=== PATIENT | female | born 1980 | race Caucasian/White ===

== ENCOUNTER 2019-06-20 16:05 | Emergency (ER) | payer OTHER, SELFPAY ==
[2019-06-20 16:18] VITALS: BP 131/73; PULSE 92; RESP 16; TEMP 37.3; O2SAT 100
--- NOTE | 2019-06-20 16:26 | ED.URI ---
HPI - URI/Sore Throat General Chief Complaint: Upper Respiratory Infection Stated Complaint: sore throat History of Present Illness HPI Narrative: This is a 39-year-old female comes in complaining of having a sore throat since yesterday patient states that she gets strep very easily states that it started yesterday. Patient states that her ears bilaterally have started to hurt and she does not feel dizzy but they are causing severe pain. Related Data Home Medications Medication Instructions Recorded Confirmed bimatoprost 1 drp QPM 06/20/19 06/20/19 Allergies Allergy/AdvReac Type Severity Reaction Status Date / Time Sulfa (Sulfonamide Allergy Unknown Urticaria Verified 06/20/19 16:10 Antibiotics) Review of Systems Review of Systems: Narrative: CONSTITUTIONAL: Denies fever, chills, or sweats. EYES: Denies visual changes, redness, or discharge. ENT: Reports rhinorrhea, congestion, sore throat, or otalgia. CARDIOVASCULAR:Denies chest pain, palpitations, or edema. RESPIRATORY: Denies cough or dyspnea. GASTROINTESTINAL: Denies abdominal pain, nausea, vomiting, or diarrhea. GENITOURINARY: Denies dysuria or hematuria. SKIN:[Denies rash or itching. MUSCULOSKELETAL:Denies back pain, joint pain, or myalgia. NEUROLOGIC: Denies headache, numbness, or weakness. PSYCHIATRIC:Denies anxiety or depression PMFSH Past Medical History Medical History (Updated 06/21/19 @ 00:00 by Judie Flores) ADHD Social History Social History (Updated 01/30/19 @ 14:17 by French Weeks APN) Smoking packs per day: 0.5 Smoking cigarettes per day: 10.0 Smoking status: Current every day smoker Alcohol intake: current Gender identity (if verbalized by the patient): Female Comments At time as signature, I have reviewed and agree with nursing past medical, social, surgical and family history. Please see nursing chart for further information. There is no relevant family history pertinent to the presenting complaint. Exam Narrative: Exam Narrative: GENERAL:Well-appearing, well-nourished, and in no acute distress. HEAD:Normocephalic, atraumatic. EYES: PERRLA and EOMI. ENT: Nares clear, no rhinorrhea or epistaxis. Mucous membranes moist. Pharyngeal erythema TM right bulging with erythema left TM with slight erythema NECK: Supple. CHEST: Clear to auscultation. No respiratory distress. HEART: Regular rate and rhythm. No murmur heard. Normal peripheral pulses. ABDOMEN: Soft, nontender, nondistended, normal active bowel sounds. EXTREMITIES: Normal range of motion. No edema. SKIN: Warm, dry, no rash. NEURO: No focal deficits. Alert and oriented x3. Course Vital Signs Vital signs: Vital Signs Temperature 99.2 F 06/20/19 16:18 Pulse Rate 92 06/20/19 16:18 Respiratory Rate 16 06/20/19 16:18 Blood Pressure 131/73 06/20/19 16:18 Pulse Oximetry 100 06/20/19 16:18 Temperature 99.2 F 06/20/19 16:18 Pulse Rate 92 06/20/19 16:18 Respiratory Rate 16 06/20/19 16:18 Blood Pressure 131/73 06/20/19 16:18 Pulse Oximetry 100 06/20/19 16:18 MDM - URI/Sore Throat Differential Diagnosis Differential diagnosis: Likely upper respiratory infection, croup, otitis media, sinusitis and pharyngitis Lab Data Labs: Strep Screen Presumptive Negative *(Reference Range: Negative)* Discharge Plan Discharge Clinical Impression: Pharyngitis, Otitis media Patient Disposition: Home, Self-Care Condition: Stable Instructions: Antibiotic Form, Pharyngitis (ED) Additional Instructions: Your strep test today was negative. A throat culture will be sent to the laboratory for further testing. IF the test is positive, you will receive a phone call within 48 hours and an appropriate antibiotic will be initiated at that time. You will not receive a phone call if the test is negative. Until the throat culture proves otherwise, you should proceed with treating this is as a vi
== END 2019-06-20 16:38 | disposition home or self-care (01) ==
PROVIDERS: Emergency Provider Nurse Practitioner Family; PCP Internal Medicine
DX: J02.9 Acute pharyngitis, unspecified (principal); H66.91 Otitis media, unspecified, right ear; F17.210 Nicotine dependence, cigarettes, uncomplicated; F90.9 Attention-deficit hyperactivity disorder, unspecified type
CPT/HCPCS: 87081; 87880; 99213; G0463

== ENCOUNTER 2019-10-15 16:44 | Emergency (ER) | payer OTHER, SELFPAY | END 2019-10-15 16:46 | disposition left against medical advice (07) | PROVIDERS: Emergency Provider Nurse Practitioner; PCP Internal Medicine | DX: Z53.21 Procedure and treatment not carried out due to patient leaving prior to being seen by health care provider (principal) | CPT/HCPCS: 99199 ==

== ENCOUNTER 2020-11-16 04:41 | Day surgery (SDC) | payer OTHER, SELFPAY ==
[2020-11-16] VITALS (13 sets, daily range): BP systolic 91–136; BP diastolic 48–93; PULSE 60–87; RESP 12–20; TEMP 36.2–37.5; O2SAT 95–100
--- NOTE | ~2020-11-16 | US_ITS ---
US abdomen limited INDICATION: Epigastric pain PROCEDURE: Realtime right upper abdominal ultrasound. COMPARISON: No prior studies for comparison. FINDINGS: The pancreas is normal without focal mass or pancreatic ductal dilation. Liver echotexture is normal without focal mass or intrahepatic biliary dilatation. There is normal directional flow i n the portal vein. The gallbladder is normal without stones, gallbladder wall thickening or pericholecystic fluid. Comm on bile duct measures 7 mm. No sonographic El's sign. IMPRESSION: 1: Borderline size common bile duct measuring 7 mm. Otherwise, unremarkable limited abdominal ultraso und. Reviewed, dictated and finalized at location A. IMPRESSION: 1: Borderline size common bile duct measuring 7 mm. Otherwise, unremarkable salazar ited abdominal ultrasound.
--- NOTE | ~2020-11-16 | CT_ITS ---
EXAMINATION: CT abdomen pelvis w con DATE: 11/16/2020 09:44 INDICATION: Epigastric abdominal pain. TECHNIQUE: Computed tomography (CT) of the abdomen and pelvis was performed with 100 mL Omnipaque 350 intravenous contrast. Automated exposure control and iterative reconstruction technique were employe d. The dose-length product was 894.50 mGy-cm. COMPARISON: Abdomen ultrasound 11/16/2020 FINDINGS: The visualized portions of the lung bases are clear without pneumonia or pleural effusion. The heart size is normal. No pericardial effusion. The liver and spleen are normal. The gallbladder i s distended. There is a gallstone lodged in the gallbladder neck. The pancreas, adrenal glands, and k idneys are normal. There are no dilated loops of bowel. The appendix is normal. There is diverticulos is of the colon without evidence of diverticulitis. There are no pathologically enlarged lymph nodes. There is no free intraperitoneal fluid. There is moderate lumbar spondylosis. IMPRESSION: 1. Acute cholecystitis. Reviewed, dictated and finalized at location B. IMPRESSION: 1. Acute cholecystitis.
[2020-11-16 05:01] LABS: Basophils Percent Auto 0.3 % (0.2-1.2); Eosinophils Absolute Auto 0.1 K/mm3 (0-0.3); Eosinophils Percent Auto 1.2 % (0-4.4); Hematocrit 44.5 % (37.0-47.0); Hemoglobin 14.5 g/dL (12.0-15.0); Immature Granulocyte Absolute 0.04 K/mm3 (0.00-0.031); Immature Granulocyte Percent A 0.4 % (0-0.5); Lymphocytes Absolute Auto 3.18 K/mm3 (0.9-3.2); Lymphocytes Percent Auto 27.9 % (18.3-44.2); Mean Corpuscular HGB Conc 32.6 g/dl (32-36); Mean Corpuscular Hemoglobin 29.8 pg (26-34); Mean Corpuscular Volume 91.4 fl (80-100); Mean Platelet Volume 10.6 fl (7.4-10.4); Monocytes Absolute Auto 0.6 K/mm3 (0.1-0.6); Monocytes Percent Auto 5.5 % (2.6-8.5); Neutrophils Absolute Auto 7.4 K/mm3 (1.3-6.7); Neutrophils Percent Auto 64.7 % (45.5-73.1); Platelet Count Result 252 k/mm3 (150-375); Red Blood Count 4.87 M/mm3 (4.2-5.4); White Blood Count 11.4 K/mm3 (4.5-10.0)
[2020-11-16 05:16] LABS: Alanine Aminotransferase 43 U/L (4-35); Albumin Level 4.2 g/dL (3.5-5.1); Alkaline Phosphatase 88 U/L (38-126); Anion Gap 5 mmol/L (8-16); Aspartate Amino Transferase 42 U/L (14-36); Bilirubin,Total 0.5 mg/dL (0.2-1.3); Blood Urea Nitrogen 11 mg/dL (7-17); Calcium 9.5 mg/dL (8.4-10.2); Carbon Dioxide 29 mmol/L (22-30); Chloride 105 mmol/L (98-107); Estimated CRCL calculation 115 ml/min; Estimated Glomerular Filt Rate > 60; Glucose 107 mg/dL (65-110); Lipase 85 U/L (23-300); Sodium 139 mmol/L (137-145)
[2020-11-16 07:09] LABS: Add Urine Microscopic? NO; Appearance Urine Clear (Clear); Bilirubin Urine Negative (Negative); Blood Urine Negative (Negative); Color Urine Yellow (Yellow); Glucose Urine UA Negative (Negative); Ketones Urine Negative (Negative); Leukocyte Esterase Ur Negative LEU/UL (Negative); Nitrate Urine Negative (Negative); Protein Urine Negative (Negative); Specific Grav Ur 1.013 (1.001-1.035); Urobilinogen Urine Negative mg/dL (<2.0)
[2020-11-16] MEDS: PANTOPRAZOLE SODIUM IV 40 MG VIAL IV PUSH (07:42)
[2020-11-16] MEDS: ONDANSETRON INJ 4 MG/2 ML VIAL IV PUSH ×3 (07:42→13:24)
--- NOTE | 2020-11-16 08:03 | ECG_ITS ---
Measurements Intervals [place] Rate: 57 P: 55 LA: 133 QRS: 65 QRSD: 89 T: 48 QT: 411 QTc: 402 Interpretive Statements SINUS BRADYCARDIA BASELINE ARTIFACT- I, III, AVL BORDERLINE ECG Electronically Signed On 11-16-2020 8:37:43 CDT by Devin Villalobos D.O.
--- NOTE | 2020-11-16 08:03 | ED.ABDPAIN ---
HPI - Abdominal Pain General Chief Complaint: Abdominal Pain Stated Complaint: chest pain x 3 hours Time Seen by Provider: 11/16/20 07:08 Source: patient and RN notes reviewed Mode of arrival: ambulatory Limitations: no limitations History of Present Illness HPI narrative: This is a 40 year old female who presents for evaluation of epigastric abdominal pain. She reports pain that started around 2 am this morning. Her pain is constant and she describes as burning and sharp . She took Tums and Mylanta without improvement of her pain. She has associated and vomiting. She denies fever, chills, diarrhea, or melena. She denies cough. She reports when her pain becomes severe she feels like it takes away her breath but otherwise she has not shortness of breath. She denies history of gallbladder disease. Related Data Allergies Allergy/AdvReac Type Severity Reaction Status Date / Time Sulfa (Sulfonamide Allergy Unknown Urticaria Verified 11/16/20 04:58 Antibiotics) Review of Systems Review of Systems: All systems reviewed & are unremarkable except as noted in HPI and below PMFSH Past Medical History Medical History (Updated 11/16/20 @ 11:06 by Heron Rebolledo MD) ADHD BMI 32.0-32.9,adult Cholelithiasis and acute cholecystitis with obstruction Personal history of nicotine dependence Family History Family History Grandparent Diabetes mellitus, Onset Age: 76 Acute myocardial infarction, Onset Age: 72 Family history of kidney disease, Onset Age: 76 Family history of Alzheimer's disease, Onset Age: 72 Family history of dementia, Onset Age: 74 Father Lung cancer Diabetes mellitus Hypertension High cholesterol Mother Diabetes mellitus Hypertension High cholesterol Social History Social History Smoking packs per day: 0.5 Smoking cigarettes per day: 10.0 Smoking status: Current every day smoker Alcohol intake: current Substance use: never 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 Gender identity (if verbalized by the patient): Female Exam Const: General: alert Orientation/consciousness: patient oriented x3 Other: moderate pain Eyes: EOM: EOMs intact bilaterally Resp: Effort & Inspection: normal respiratory effort and no retractions Auscultation: clear to auscultation bilaterally Cardio: Rate: regular rate Rhythm: regular rhythm Heart sounds: no murmurs GI: GI Palp: Yes Soft to palpation, Yes Tenderness to palpation present (GI) (epigastric, RUQ), No Guarding due to palpation present (GI) and No Rigid due to palpation Auscultation: normal bowel sounds Neuro: General: patient oriented x3, moves all extremities and CN's II-XI intact bilaterally Psych: Mental Status: mental status grossly normal Affect: normal affect Course Reevaluation(s) Reevaluation #1: Patient reports her pain has improved but she does have continued severe tenderness. She is agreeable to CT abdomen and pelvis Date: 11/16/20 Time: 09:15 Reevaluation #2: I Discussed with patient that she has been found to have acute cholecystitis and she will go to OR Date: 11/16/20 Time: 10:30 Consultations Consultation #1: I spoke with Dr. Ackerman. He reviewed patient's CT and he will take patient to OR today for cholecystectomy Date: 11/16/20 Time: 10:28 Vital Signs Vital signs: Vital Signs Temperature 98.1 F 11/16/20 04:55 Pulse Rate 86 11/16/20 04:55 Respiratory Rate 18 11/16/20 04:55 Blood Pressure 131/83 11/16/20 04:55 Pulse Oximetry 95 11/16/20 04:55 Temperature 97.2 F L 11/16/20 13:09 Pulse Rate 69 11/16/20 14:35 Respiratory Rate 16 11/16/20 14:35 Blood Pressure 121/65 11/16/20 14:35 Pulse Oximetry 100 11/16/20 13:45 MDM - Abdominal Pain Lab Data Attestation: I reviewed the patient's lab results. Result diagrams: 11/16/20 04:54
--- NOTE | 2020-11-16 08:23 | PC.NURSE ---
Pt to ultrasound.
[2020-11-16 08:53] LABS: Troponin I < 0.012 ng/mL (0.000-0.034)
--- NOTE | 2020-11-16 09:13 | PC.NURSE ---
Dr. Burnett at bedside to discuss results with pt.
--- NOTE | 2020-11-16 09:37 | PC.NURSE ---
Pt to CT.
[2020-11-16] MEDS: SODIUM CHLORIDE 0.9% IV 1,000 ML 999 ML IV CONT (09:58)
--- NOTE | 2020-11-16 10:26 | PC.NURSE ---
Dr. Burnett at bedside to discuss results with pt.
[2020-11-16] MEDS: HYDROmorphone HCL INJ (*CRX) 1 MG/ML SYR 0.5 MG IV PUSH (10:27)
--- NOTE | 2020-11-16 10:30 | PM.SD2 ---
Same Day Admit/Disch: HPI History of Present Illness Chief complaint: chest pain x 3 hours Narrative: Mena Morales is a 40 year old female who came to the emergency room this morning with complaints of epigastric severe abdominal pain. This started about 2:00 a.m. today. It is very sharp and painful. Mylanta did not help. She has had some vomiting as well. In the emergency room she was noted to have tenderness in the epigastric area and right upper quadrant. [place] [id number]. Although ultrasound was negative, CT scan showed a gallstone in the neck of the gallbladder with significant gallbladder distention consistent with acute cholecystitis. I reviewed the CT scan independently and agree with this reading. Patient has had analgesics in the emergency room but is having pain yet again. She is taken to surgery now for laparoscopic cholecystectomy for acute cholecystitis. Liver enzymes showed only a mild elevation of the AST and ALT. Lipase was normal. [facility] Past Medical History Medical History (Updated 11/16/20 @ 11:06 by Heron Rebolledo MD) ADHD BMI 32.0-32.9,adult Cholelithiasis and acute cholecystitis with obstruction Personal history of nicotine dependence Family History Family History Grandparent Diabetes mellitus, Onset Age: 76 Acute myocardial infarction, Onset Age: 72 Family history of kidney disease, Onset Age: 76 Family history of Alzheimer's disease, Onset Age: 72 Family history of dementia, Onset Age: 74 Father Lung cancer Diabetes mellitus Hypertension High cholesterol Mother Diabetes mellitus Hypertension High cholesterol Social History Social History Smoking packs per day: 0.5 Smoking cigarettes per day: 10.0 Smoking status: Current every day smoker Alcohol intake: current Substance use: never Additional occupation/education comments: [employer] Gender identity (if verbalized by the patient): Female Same Day Admit/Disch: Med Pre-admit Medications Home Medications Medication Instructions Recorded Confirmed Type dextroamphetamine-amphetamine 20 20 mg PO BID #60 tablet 03/16/20 11/16/20 Rx mg tablet bimatoprost 0.03 % eye drops 1 drp EACH EYE QPM #5 ml 07/21/20 11/16/20 Rx sumatriptan succinate 50 mg tablet See Rx Instructions PO .COMPLEX 07/21/20 11/16/20 Rx #10 tablet hydrocodone-acetaminophen 1 - 2 tablet PO Q6H PRN #10 tablet 11/16/20 Rx ketorolac 10 mg PO Q6H 4 Days #16 tablet 11/16/20 Rx Exam Const: General: comfortable, no acute distress, alert and awake HENMT: Head: normocephalic and atraumatic Mouth: Yes Normal oral and palatal mucosa present Eyes: Conjunctivae: conjunctivae normal Pupils: Equal, round and reactive pupils present EOM: EOMs intact bilaterally Neck: Neck: normal visual inspection, no lymphadenopathy and nontender Resp: Effort & Inspection: normal respiratory effort Auscultation: clear to auscultation bilaterally Cardio: Rate: regular rate Rhythm: regular rhythm Heart sounds: no gallops, no murmurs and no rubs GI: Inspection: normal to inspection and non-distended GI Palp: Yes Soft to palpation, Yes Tenderness to palpation present (GI) ( Right upper quadrant and epigastric area), Yes Guarding due to palpation present (GI), No Hepatomegaly present and No Splenomegaly present Auscultation: normal bowel sounds Skin: Lesions: no lesions Rashes: no rashes Neuro: General: no focal motor deficits and CN's II-XI intact bilaterally Cranial nerves: Yes Equal, round and reactive pupils present, Yes Bilaterally intact EOM present, Yes facial symmetry and Yes Midline tongue present Speech: normal speech Motor exam (neuro): 5/5 motor strength present throughout and Motor abnormalities not present Extrem: General: no clubbing, cyanosis or edema and edema Psych: Affect: normal affect Thoug
--- NOTE | 2020-11-16 10:36 | WPDHPUPDATE1 ---
History and Physical Update Update Date/Time: 11/16/20 10:36 History and Physical has been reviewed, including an updated exam of the patient. There are NO changes in the patient's condition. Risks, benefits, and alternatives have been discussed and questions answered. Patient agrees to proceed with procedure.
--- NOTE | 2020-11-16 10:51 | PC.NURSE ---
surgeon at bedside. Pt being transported to pre-op following conversation regarding procedure.
--- NOTE | 2020-11-16 11:04 | WPDANESEPPF ---
Anes - Initial Pre Proc Eval Procedure: Operation Date: 11/16/20 12:00 Proposed Procedures p Laparoscopic Cholecystectomy - Rod Ackerman MD Date/Time: 11/16/20 11:04 Surgeon: Rod Ackerman MD Pre Op Diagnosis: chest pain x 3 hours Patient Data Age: 40 Gender: F Height: 1.65 m Weight: 88 kg Last Vital Signs Temp 36.7 C 11/16/20 04:55 Pulse 60 11/16/20 10:26 Resp 18 11/16/20 10:26 BP 122/64 11/16/20 10:26 Pulse Ox 99 11/16/20 10:26 Allergies Allergy/AdvReac Type Severity Reaction Status Date / Time Sulfa (Sulfonamide Allergy Unknown Urticaria Verified 11/16/20 04:58 Antibiotics) Home Medications Medication Instructions Recorded Confirmed Type dextroamphetamine-amphetamine 20 20 mg PO BID #60 tablet 03/16/20 07/21/20 Rx mg tablet bimatoprost 0.03 % eye drops 1 drp EACH EYE QPM #5 ml 07/21/20 07/21/20 Rx sumatriptan succinate 50 mg tablet See Rx Instructions PO .COMPLEX 07/21/20 Rx #10 tablet cephalexin 500 mg capsule 500 mg PO Q8H #30 cap 08/23/20 Rx Laboratory Tests 11/16/20 11/16/20 11/16/20 04:54 04:54 04:54 WBC 11.4 K/mm3 H K/mm3 (4.5-10.0) RBC 4.87 M/mm3 M/mm3 (4.2-5.4) Hgb 14.5 g/dL g/dL (12.0-15.0) Hct 44.5 % % (37.0-47.0) MCV 91.4 fl fl (80-100) MCH 29.8 pg pg (26-34) MCHC 32.6 g/dl g/dl (32-36) RDW 14.0 % % (11.5-14.5) Plt Count 252 k/mm3 k/mm3 (150-375) MPV 10.6 fl H fl (7.4-10.4) Immature Gran % (Auto) 0.4 % % (0-0.5) Neut % (Auto) 64.7 % % (45.5-73.1) Lymph % (Auto) 27.9 % % (18.3-44.2) Mcleod % (Auto) 5.5 % % (2.6-8.5) Eos % (Auto) 1.2 % % (0-4.4) Baso % (Auto) 0.3 % % (0.2-1.2) Lymph # (Auto) 3.18 K/mm3 K/mm3 (0.9-3.2) Mcleod # (Auto) 0.6 K/mm3 K/mm3 (0.1-0.6) Eos # (Auto) 0.1 K/mm3 K/mm3 (0-0.3) Baso # (Auto) 0.0 K/mm3 K/mm3 (0.0-0.1) Abs Immat Gran (auto) 0.04 K/mm3 H K/mm3 (0.00-0.031) Absolute Neuts (auto) 7.4 K/mm3 H K/mm3 (1.3-6.7) Absolute Nucleated RBC 0.0 K/mm3 K/mm3 (0.0-0.012) Nucleated RBC % 0.0 % % (0.0-0.2) Sodium 139 mmol/L mmol/L (137-145) Potassium 4.0 mmol/L mmol/L (3.4-5.0) Chloride 105 mmol/L mmol/L (98-107) Carbon Dioxide 29 mmol/L mmol/L (22-30) Anion Gap 5 mmol/L L mmol/L (8-16) BUN 11 mg/dL mg/dL (7-17) Creatinine 0.60 mg/dL L mg/dL (0.7-1.0) Estim Creat Clear Calc 115 ml/min ml/min Estimated GFR > 60 (59 - ) Glucose 107 mg/dL mg/dL (65-110) Calcium 9.5 mg/dL mg/dL (8.4-10.2) Total Bilirubin 0.5 mg/dL mg/dL (0.2-1.3) AST 42 U/L H U/L (14-36) ALT 43 U/L H U/L (4-35) Alkaline Phosphatase 88 U/L U/L (38-126) Troponin I < 0.012 ng/mL ng/mL (0.000-0.034) Total Protein 7.0 g/dL g/dL (6.3-8.2) Albumin 4.2 g/dL g/dL (3.5-5.1) Lipase 85 U/L U/L (23-300) Urine Color Urine Appearance Urine pH Ur Specific [place] Urine Protein Urine Glucose (UA) Urine Ketones Ur Blood (Man) Urine Nitrate Urine Bilirubin Urine Urobilinogen Leukocyte Esterase Rfl 11/16/20 07:01 WBC RBC Hgb Hct MCV MCH MCHC RDW Plt Count MPV Immature Gran % (Auto) Neut % (Auto) Lymph % (Auto) Mcleod % (Auto) Eos % (Auto) Baso % (Auto) Lymph # (Auto) Mcleod # (Auto) Eos # (Auto) Baso # (Auto) Abs Immat Gran (auto) Absolute Neuts (auto) Absolute Nucleated RBC Nucleated RBC
[2020-11-16] MEDS: LACTATED RINGERS 1,000 ML 30 ML IV CONT ×2 (11:14→13:09)
[2020-11-16] MEDS: ceFAZolin 2 GM/D5W 50 ML 2 GM/50 ML BAG IVPB (11:59)
[2020-11-16] MEDS: BUPIVACAINE/EPINEPHRINE 0.5% 50 ML VIAL (12:27)
[2020-11-16] MEDS: fentaNYL CITRATE INJ (*CRX) 100 MCG/2 ML VIAL 25 MCG IV PUSH ×4 (13:24→13:45)
[2020-11-16] MEDS: oxyCODONE HCL (*CRX) 5 MG TAB IR PO (14:00)
--- NOTE | 2020-11-16 14:07 | W.PM.PROC2 ---
Procedure Note - Detailed Date of Procedure 11/16/20 Pre-op Diagnosis Acute cholecystitis with gallstones, cystic duct obstruction Post-op Diagnosis same Procedure Performed Laparoscopic cholecystectomy Surgeon Rod Ackerman MD [employer] Chela JALLOH Anesthesia general and local (0.5% Marcaine with epinephrine) Indications Patient awakened about 2:00 a.m. this morning with severe epigastric abdominal pain and vomiting. The pain persisted. She came to the emergency room where she was noted to be tender and have an elevated white count. CT scan showed a stone in the cystic duct and a very distended gallbladder consistent with acute cholecystitis. She is taken to surgery now for laparoscopic cholecystectomy. Findings Very dilated acutely inflamed gallbladder. No biliary ductal dilatation. No large stones noted. Liver appeared normal. Description of Procedure The patient was taken to surgery and induced into general anesthesia. The abdomen is prepped and draped. Trocars were placed in the usual fashion using 0.5% Marcaine with epinephrine an applied Medical optical trocars. A 5 mm camera was used. The patient was placed in reverse Trendelenburg. The gallbladder was extremely distended. A laparoscopic aspirator was used and the gallbladder was decompressed. No large stones were noted in the gallbladder after was decompressed. The cholecystotomy was closed with Vicryl endoloop. The gallbladder was then retracted anterosuperiorly. Dissection was carried out in the cholecystohepatic triangle. There was edema and hypervascularity consistent with acute inflammation. Traction was placed on the infundibulum and dissection was carried out in the triangle of [place]. The cystic duct and cystic artery were dissected out very clearly. There was a little more bleeding than usual due to the acute nature of the inflammation. Gallbladder was dissected off the liver on its lower 3rd. Critical view was achieved. We securely clipped and divided the cystic duct and cystic artery. The gallbladder was then further dissected free of its peritoneal attachments to the liver. The gallbladder fossa was cauterized and made hemostatic. We eventually freed the gallbladder completely from the liver. Additional cautery and irrigation were used in the subhepatic space to achieve good hemostasis. Gallbladder was then placed in an Endo-Catch bag and retrieved through the 10 11 epigastric trocar site. We replaced the epigastric trocar and reviewed the right upper quadrant. Additional irrigation and suctioning were carried out. There was no evidence of bleeding or bile leakage. We then evacuated CO2 and removed the trocar sleeves. Skin wounds were closed with subcuticular 4-0 Monocryl skin suture. The wounds were dressed with Exofin surgical adhesive. The patient was awakened and taken to recovery in good condition. Sponge needle counts were correct x2. Estimated Blood Loss -30.0 Drains No Packing No Pathology yes (Gallbladder) Complications None Condition stable Disposition PACU
== END 2020-11-16 14:44 | disposition home or self-care (01) ==
LOC: ANHED 10:24 → ANHSURGERY 10:34
PROVIDERS: Emergency Medicine; Emergency Provider General Practice; PCP Internal Medicine; Visit Provider Surgery
PROC: 0FT44ZZ Resection of Gallbladder, Percutaneous Endoscopic Approach (ICD-10-PCS; CPT 47562; principal; 2020-11-16 12:00)
DX: K80.10 Calculus of gallbladder with chronic cholecystitis without obstruction (principal); F90.9 Attention-deficit hyperactivity disorder, unspecified type; F17.210 Nicotine dependence, cigarettes, uncomplicated
CPT/HCPCS: 47562; 36415; 74177; 76705; 80053; 81003; 81025; 83690; 84484; 85025; 86850; 86900; 86901; 88304; 93005; 96361; 96365; 96375; 96376; 99285; A9270; C1713; C9113; J0131; J0690; J1100; J1170; J2250; J2405; J2704; J2710; J3010; J7030; J7120; Q9967

== ENCOUNTER 2021-02-07 01:29 | Day surgery (SDC) | payer OTHER, SELFPAY ==
[2021-01-27 13:18] VITALS: BMI 31.8
--- NOTE | 2021-02-07 09:43 | WPDANESEPPF ---
Anes - Initial Pre Proc Eval Procedure: Operation Date: 02/07/21 12:30 Proposed Procedures p Esophagogastroduodenoscopy & Colonoscopy - Pedro Luis Felder MD Date/Time: 02/07/21 09:43 Surgeon: Pedro Luis Felder MD Pre Op Diagnosis: nausea, diarrhea, abdominal pain Patient Data Age: 40 Gender: F Height: 1.68 m Weight: 89.5 kg Allergies Allergy/AdvReac Type Severity Reaction Status Date / Time Sulfa (Sulfonamide Allergy Intermediate Urticaria Verified 02/07/21 11:01 Antibiotics) Home Medications Medication Instructions Recorded Confirmed Type bimatoprost 0.03 % eye drops 1 drp EACH EYE QPM #5 ml 07/21/20 01/27/21 Rx loperamide-simethicone [Imodium 2 tablet PO PRN PRN MDD 8 01/27/21 01/27/21 History Multi-Symptom Relief] sumatriptan succinate [Imitrex] See Rx Instructions PO .COMPLEX PRN 01/27/21 01/27/21 History buprenorphine-naloxone 1 film SUBLINGUAL BID 02/03/21 02/07/21 History Patient hx anesthesia problems: none Family hx anesthesia problems: none Results Review: All pre-operative results and documents have been reviewed as part of the pre-operative evaluation. [facility] Past Medical History Medical History ADHD BMI 32.0-32.9,adult Cholelithiasis and acute cholecystitis with obstruction Chronic narcotic use Nausea & vomiting Personal history of nicotine dependence Smoker Surgical History Surgical History Hx laparoscopic cholecystectomy 11/16/20 Family History Family History Grandparent Diabetes mellitus, Onset Age: 76 Acute myocardial infarction, Onset Age: 72 Family history of kidney disease, Onset Age: 76 Family history of Alzheimer's disease, Onset Age: 72 Family history of dementia, Onset Age: 74 Father Lung cancer Diabetes mellitus Hypertension High cholesterol Mother Diabetes mellitus Hypertension High cholesterol Social History Social History Smoking packs per day: 0.5 Smoking cigarettes per day: 10.0 Years smoked: 7 Smoking pack-years: 3.50 Smoking status: Current every day smoker Tobacco type: cigarettes Alcohol intake: current Substance use: never Substance use type: does not use Living arrangements: with family 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 [employer] Gender identity (if verbalized by the patient): Female Sexual Orientation (if Verbalized by the Patient): Straight or Heterosexual Spiritual care concerns: No Anes - Eval Final PreProcedure Day of Procedure 02/07/21 09:43 Patient weight: obese Heart: regular rate and rhythm Lungs: clear to auscultation and normal air movement Airway: Mallampati scale class II Neurological: alert and oriented Last oral intake: >/= 8 hours ASA classification: III Emergent: no Anesthetic plan: proceed Anesthesia type and monitoring: general GIVS Results Review: All pre-operative results and documents have been reviewed as part of the pre-operative evaluation. Informed Consent: The patient's anesthetic plan and its attendant risks and benefits were discussed with the patient/family/POA. Questions were solicited and answers provided to the satisfaction of the patient/family/POA.
[2021-02-07 11:03] VITALS: BP 108/73; PULSE 87; RESP 18; TEMP 36.7; O2SAT 95
[2021-02-07] MEDS: LACTATED RINGERS 1,000 ML 150 ML IV CONT (11:12)
--- NOTE | 2021-02-07 12:33 | PM.HPGS ---
History of Present Illness History of Present Illness Consent: Risks, benefits, and alternatives have been discussed and questions answered. Patient agrees to proceed with procedure. Chief complaint: nausea, diarrhea, abdominal pain Narrative: Mena Morales is a 40 year old female who had lap tata 10/2020 because cholecystitis and since then with intermittent nausea, vomiting and diarrhea, using now antidiarrheals, simethicone. Tried questran but very nauseous. Never had scopes. Review of Systems Constitutional: Constitutional: Denies headache(s) and Denies weakness Eyes: Eyes: Denies blurry vision ENT: Reports Normal hearing present, Denies headache(s) and Denies neck pain Cardiovascular: Cardiovascular: Denies chest pain and Denies dyspnea Respiratory: Respiratory: Denies dyspnea Gastrointestinal: Gastrointestinal: Reports no additional gastrointestinal complaints Genitourinary: Genitourinary: Denies dysuria Musculoskeletal: Musculoskeletal: Denies neck pain Integumentary/Breasts: Skin/Breast: Denies dry skin Neurologic: Reports Normal hearing present, Denies headache(s) and Denies weakness Psychiatric: Psychiatric: Denies anxiety Endocrine: Endocrine: Denies change in body appearance Hematologic/Lymphatic: Hematologic/Lymphatic: Denies easy bleeding Allergic/Immunologic: Allergic/Immunologic: Denies urticaria PMFSH Past Medical History Medical History ADHD BMI 32.0-32.9,adult Cholelithiasis and acute cholecystitis with obstruction Chronic narcotic use Nausea & vomiting Personal history of nicotine dependence Smoker Surgical History Surgical History (Updated 02/07/21 @ 12:36 by Pedro Luis Felder MD) Hx laparoscopic cholecystectomy 11/16/20 Family History Family History Grandparent Diabetes mellitus, Onset Age: 76 Acute myocardial infarction, Onset Age: 72 Family history of kidney disease, Onset Age: 76 Family history of Alzheimer's disease, Onset Age: 72 Family history of dementia, Onset Age: 74 Father Lung cancer Diabetes mellitus Hypertension High cholesterol Mother Diabetes mellitus Hypertension High cholesterol Social History Social History Smoking packs per day: 0.5 Smoking cigarettes per day: 10.0 Years smoked: 7 Smoking pack-years: 3.50 Smoking status: Current every day smoker Tobacco type: cigarettes Alcohol intake: current Substance use: never Substance use type: does not use Living arrangements: with family 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 Gender identity (if verbalized by the patient): Female Sexual Orientation (if Verbalized by the Patient): Straight or Heterosexual Spiritual care concerns: No Meds Home Medications and Allergies Home Medications Medication Instructions Recorded Confirmed Type bimatoprost 0.03 % eye drops 1 drp EACH EYE QPM #5 ml 07/21/20 01/27/21 Rx loperamide-simethicone [Imodium 2 tablet PO PRN PRN MDD 8 01/27/21 01/27/21 History Multi-Symptom Relief] sumatriptan succinate [Imitrex] See Rx Instructions PO .COMPLEX PRN 01/27/21 01/27/21 History buprenorphine-naloxone 1 film SUBLINGUAL BID 02/03/21 02/07/21 History Allergies Allergy/AdvReac Type Severity Reaction Status Date / Time Sulfa (Sulfonamide Allergy Intermediate Urticaria Verified 02/07/21 11:01 Antibiotics) Vital Signs Vital Signs - 24 hr 02/07/21 11:03 Temperature 98.1 F Pulse Rate 87 Respiratory Rate 18 Blood Pressure 108/73 Pulse Oximetry 95 Exam Const: General: comfortable and no acute distress HENMT: General nose exam: Normal nares present Eyes: General: appearance normal, both eyes and all related structures Neck: Neck: no JVD Resp: Auscultation: clear to auscultation bilaterally Cardio: Rate: regular rate Rhythm: regular rhythm GI: Ins
[2021-02-07 13:03] VITALS: BP 92/51; PULSE 84; RESP 20; O2SAT 100
[2021-02-07 13:13] VITALS: BP 109/62; PULSE 86; RESP 16; O2SAT 99
[2021-02-07 13:23] VITALS: BP 118/71; PULSE 79; RESP 16; O2SAT 100
== END 2021-02-07 13:33 | disposition home or self-care (01) ==
PROVIDERS: PCP Internal Medicine; Visit Provider Internal Medicine Gastroenterology
PROC: 0DJ08ZZ Inspection of Upper Intestinal Tract, Via Natural or Artificial Opening Endoscopic (ICD-10-PCS; CPT 43235; principal; 2021-02-07 12:30)
DX: K52.9 Noninfective gastroenteritis and colitis, unspecified (principal); K63.5 Polyp of colon; K57.30 Diverticulosis of large intestine without perforation or abscess without bleeding; K64.8 Other hemorrhoids; Z90.49 Acquired absence of other specified parts of digestive tract; K21.00 Gastro-esophageal reflux disease with esophagitis, without bleeding; K29.70 Gastritis, unspecified, without bleeding; R11.2 Nausea with vomiting, unspecified; Z79.891 Long term (current) use of opiate analgesic; F17.210 Nicotine dependence, cigarettes, uncomplicated; E66.9 Obesity, unspecified; Z68.31 Body mass index [BMI] 31.0-31.9, adult
CPT/HCPCS: 45385; 45380; 43239; 88305; J2704; J7120

== ENCOUNTER 2022-08-21 07:21 | Outpatient (CLI) | payer OTHER, SELFPAY ==
--- NOTE | ~2022-08-21 | MM_ITS ---
EXAMINATION: MM screening kailyn BI w kalani HISTORY: Screening mammogram TECHNIQUE: Craniocaudal and mediolateral oblique 3-D tomosynthesis images were obtained and synthetic 2-D images were generated. CAD analysis was submitted and interpreted. COMPARISON: 06/17/2015 BREAST PARENCHYMAL COMPOSITION: 06/17/2015 FINDINGS: No suspicious mass, calcification, or architectural distortion are identified in either virgil ast to suggest malignancy. There has been no suspicious interval change. IMPRESSION: 1. No mammographic evidence of malignancy. 2. Recommend routine screening mammography in one year. BI-RADS Category 1: Negative Reviewed, dictated and finalized at location A.
== END 2022-08-21 07:22 | disposition home or self-care (01) ==
LOC: CHSIMG 07:25
PROVIDERS: PCP Nurse Practitioner Family; Visit Provider Nurse Practitioner Family
DX: Z12.31 Encounter for screening mammogram for malignant neoplasm of breast (principal); R59.9 Enlarged lymph nodes, unspecified
CPT/HCPCS: 77063; 77067

== ENCOUNTER 2023-10-12 23:43 | Inpatient (IN) | payer OTHER, SELFPAY ==
--- NOTE | ~2023-10-12 | CT_ITS ---
CT of the Abdomen and Pelvis: Indication: Abdominal pain Technique: 2.5 mm axial scans were obtained through the abdomen and pelvis following intravenous adm inistration of 100 cc of Omnipaque 350. Dose reduction technique was used on this scan by utilizing a utomated exposure control and iterative reconstruction technique. The dose-length product (DLP) was 1 002.99 mGy-cm. COMPARISON: 11/16/2020 Findings: Scans through the lung bases are unremarkable. The liver, spleen, pancreas, adrenals and kidneys are within normal limits. Cholecystectomy clips are present. No evidence of aortic aneurysm. No lymphadenopathy. There is mild wall thickening and pericolonic inflammatory change at the serosal sigmoid colon, with small amount of extraluminal air, compatible with acute diverticulitis with microperforation. No absc ess seen. Images through the pelvis were performed. Urinary bladder unremarkable. No pelvic mass seen. No ascit es. Impression: Acute sigmoid diverticulitis with microperforation. No abscess. No bowel obstruction. Reviewed, dictated and finalized at [facility]. Impression: Acute sigmoid diverticulitis with microperforation. No abscess. No bowel obstru ction.
[2023-10-12 23:46] VITALS: BP 131/99; PULSE 99; RESP 17; TEMP 37; O2SAT 100
[2023-10-13] VITALS (16 sets, daily range): BP systolic 106–140; BP diastolic 58–85; PULSE 89–107; RESP 16–23; TEMP 36.3–38.4; O2SAT 94–100; BMI 33.6
--- NOTE | 2023-10-13 00:40 | ED.ABDPAIN ---
HPI - Abdominal Pain General Chief Complaint: Abdominal Pain Stated Complaint: abd pain Time Seen by Provider: 10/13/23 00:19 History of Present Illness HPI narrative: 43 old female presents to the emergency department for evaluation for lower abdominal pain that started yesterday. Patient does describe lower abdominal pain that has since worsened and is spreading throughout the rest her abdomen. Patient does report some soft stools and some nausea and vomiting. Patient reports she does have a history of cholecystectomy approximately 2 years. patient does have high cholesterol. Patient is not on blood thinners. Related Data Home Medications Medication Instructions Recorded Confirmed buprenorphine 2 mg-naloxone 0.5 mg 1.5 film buccal DAILY 05/24/21 10/13/23 sublingual film (Suboxone) Allergies Allergy/AdvReac Type Severity Reaction Status Date / Time Sulfa (Sulfonamide Allergy Intermediate Urticaria Verified 10/13/23 06:08 Antibiotics) sulfamethoxazole AdvReac Severe Hives Verified 10/13/23 06:08 [From Bactrim] trimethoprim [From Bactrim] AdvReac Severe Hives Verified 10/13/23 06:08 Review of Systems Review of Systems: All systems reviewed & are unremarkable except as noted in HPI and below PMFSH Past Medical History Medical History ADHD BMI 32.0-32.9,adult BMI 34.0-34.9,adult CCC (chronic calculous cholecystitis) Cholelithiasis and acute cholecystitis with obstruction Chronic low back pain Constipation COVID-19 Encounter to establish care GERD (gastroesophageal reflux disease) Hx of colonic polyps Nausea & vomiting Personal history of nicotine dependence Right ear pain Smoker Surgical History Surgical History Hx laparoscopic cholecystectomy 11/16/20 Family History Family History Grandparent Diabetes mellitus, Onset Age: 76 Acute myocardial infarction, Onset Age: 72 Family history of kidney disease, Onset Age: 76 Family history of Alzheimer's disease, Onset Age: 72 Family history of dementia, Onset Age: 74 Father Lung cancer Diabetes mellitus Hypertension High cholesterol Mother Diabetes mellitus Hypertension High cholesterol Social History Social History Smoking packs per day: 0.5 Smoking cigarettes per day: 10.0 Years smoked: 10 Smoking pack-years: 5.00 Smoking status: Current every day smoker Tobacco type: cigarettes Second hand tobacco smoke exposure: No Alcohol intake: never Substance use: never Substance use type: does not use Do You Feel Safe in your Home?: Yes Lack of Transportation: No Lack of Food: Never True Current Housing: I Have Housing Concerned About Future Housing: No Difficulty Paying Gas/Electric Bills: No Difficulty Paying for Meds: No Currently Unemployed: No Education: Trade/Vocational Certificate Difficulty w/ Childcare or Family Care: No Living arrangements: with family Occupation/Education: occupation 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 EYES: PERRLA/EOMI, conjunctivae clear. NOSE: Normal no drainage EARS:TMS clear with good light reflex. THROAT: Pharynx clear, no exudate. NECK: Supple. No adenopathy, no masses. RESPIRATORY: Airway patent, respirations nonlabored. Clear to auscultation bilaterally, no rales, rhonchi, wheezing. CARDIOVASCULAR: Regular rate and rhythm without murmurs rubs or gallops. ABDOMINAL: diffuse lower abdominal tenderness to palpation, rebound MUSCULOSKELETAL: Moves all extremities. Strength/ROM intact, No edema, No calf t
[2023-10-13] MEDS: ONDANSETRON INJ 4 MG/2 ML VIAL IV PUSH ×2 (00:49→04:25)
[2023-10-13] MEDS: SODIUM CHLORIDE 0.9% IV 1,000 ML 999 ML IV CONT (00:49)
[2023-10-13] MEDS: HYDROmorphone HCL INJ (*CRX) 1 MG/ML SYR 0.5 MG IV PUSH ×3 (00:49→12:41)
[2023-10-13 01:02] LABS: Basophils Percent Auto 0.3 % (0.2-1.2); Eosinophils Absolute Auto 0.1 K/mm3 (0-0.3); Eosinophils Percent Auto 0.5 % (0-4.4); Hematocrit 41.6 % (37.0-47.0); Hemoglobin 13.8 g/dL (12.0-15.0); Immature Granulocyte Absolute 0.04 K/mm3 (0.00-0.031); Immature Granulocyte Percent A 0.3 % (0-0.5); Lymphocytes Absolute Auto 2.81 K/mm3 (0.9-3.2); Lymphocytes Percent Auto 18.5 % (18.3-44.2); Mean Corpuscular HGB Conc 33.2 g/dl (32-36); Mean Corpuscular Hemoglobin 29.6 pg (26-34); Mean Corpuscular Volume 89.3 fl (80-100); Mean Platelet Volume 10.9 fl (7.4-10.4); Monocytes Absolute Auto 0.8 K/mm3 (0.1-0.6); Monocytes Percent Auto 5.2 % (2.6-8.5); Neutrophils Absolute Auto 11.4 K/mm3 (1.3-6.7); Neutrophils Percent Auto 75.2 % (45.5-73.1); Platelet Count Result 271 k/mm3 (150-375); Red Blood Count 4.66 M/mm3 (4.2-5.4); Red Cell Distribution Width 13.7 % (11.5-14.5); White Blood Count 15.2 K/mm3 (4.5-10.0)
[2023-10-13 01:09] LABS: Appearance Urine Clear (Clear); Bilirubin Urine Negative (Negative); Blood Urine Negative (Negative); Color Urine Yellow (Yellow); Glucose Urine UA Negative (Negative); Ketones Urine Negative (Negative); Leukocyte Esterase Ur Negative LEU/UL (Negative); Nitrate Urine Negative (Negative); Protein Urine Negative (Negative); Specific Grav Ur 1.006 (1.001-1.035); Urobilinogen Urine 0.2 mg/dL (<2.0)
[2023-10-13 01:12] LABS: Lactic Acid Reflex 0.7 mmol/L (0.7-2.0)
[2023-10-13 01:13] LABS: Alanine Aminotransferase 25 U/L (6-35); Albumin Level 4.2 g/dL (3.5-5.1); Alkaline Phosphatase 101 U/L (38-126); Anion Gap 9 mmol/L (4-12); Aspartate Amino Transferase 35 U/L (14-36); Bilirubin,Total 0.5 mg/dL (0.2-1.3); Blood Urea Nitrogen 12 mg/dL (7-17); Calcium 9.1 mg/dL (8.4-10.2); Carbon Dioxide 30 mmol/L (22-30); Chloride 98 mmol/L (98-107); Estimated CRCL calculation 83 ml/min; Estimated Glomerular Filt Rate > 60; Glucose 110 mg/dL (65-110); Lipase 37 U/L (23-300); Potassium 3.5 mmol/L (3.4-5.0); Prothrombin Time 13.4 Seconds (11.1-14.7); Sodium 137 mmol/L (137-145)
[2023-10-13 01:14] LABS: Partial Thromboplastin Time 28.9 Seconds (22.3-36.8)
[2023-10-13 01:15] LABS: Add Urine Microscopic? NO
[2023-10-13] MEDS: SODIUM CHLORIDE 0.9% IV 1,000 ML 125 ML IV CONT ×3 (04:24→19:38)
[2023-10-13] MEDS: PIPERACILLN/TAZ 3.375GM/NS50ML 3.375 GM/50 ML BAG IVPB ×3 (04:24→19:39)
--- NOTE | 2023-10-13 05:55 | ADMGEN ---
This patient, Mena Morales, was admitted to 2 Medical Room 260-01. Patient/family oriented to hospital policies and general routines including ID bracelet, bed and alarms, visiting hours, pain management, procedures, bathroom and other care routines, personal items, smoking policy, room service/diet, and visiting hours. Information on how to activate the Rapid Response Team has been discussed. Patient/Family are encouraged to report perceived risks to care and to ask questions if they do not understand what they are told or what they should do.
[2023-10-13] MEDS: HYDROmorphone HCL INJ (*CRX) 1 MG/ML SYR IV PUSH ×3 (06:49→23:24)
[2023-10-13] MEDS: ACETAMINOPHEN 500 MG TABLET 1000 MG PO (11:09)
--- NOTE | 2023-10-13 13:31 | PM.IMHP ---
H&P: HPI History of Present Illness Date/Time: 10/13/23 13:31 Chief Complaint: Left lower quadrant abdominal pain Narrative: This is a 43-year-old woman who presented to the emergency department overnight with complaints of left lower quadrant pain that started the day prior. She felt some mild left lower quadrant cramping on Saturday but then this became more severe yesterday. She denied any fevers until this morning. In the emergency department she had a CT of her abdomen and pelvis done which showed evidence of acute diverticulitis with micro perforation. There were no signs of distant free air or abscess. She was noted to have an elevated white blood count as well. The patient has never had any symptoms like this in the past. She did have a colonoscopy in 2020 which showed diverticulosis, colon polyp, and internal hemorrhoids. She has a history of opioid use but was able to stop this about 2-3 years ago. She has been on Suboxone to help manage this. Since being admitted last night her pain has continued to worsen. She states that she can barely get up out of bed without being in severe pain. She has been getting Dilaudid without any significant relief. She also began experiencing fevers this morning. Review of Systems Review of Systems: All systems reviewed & are unremarkable except as noted in HPI and below Constitutional: Constitutional: Reports fever(s) Eyes: Eyes: Denies change in vision ENT: Denies hearing loss, Denies neck pain and Denies sore throat Cardiovascular: Cardiovascular: Denies chest pain and Denies dyspnea Respiratory: Respiratory: Denies cough, Denies dyspnea and Denies wheezing Gastrointestinal: Gastrointestinal: Reports as per HPI Genitourinary: Genitourinary: Denies hematuria and Denies dysuria Musculoskeletal: Musculoskeletal: Denies arthralgias, Denies joint swelling and Denies neck pain Allergic/Immunologic: Allergic/Immunologic: Denies wheezing [facility] Past Medical History Medical History ADHD BMI 32.0-32.9,adult BMI 34.0-34.9,adult CCC (chronic calculous cholecystitis) Cholelithiasis and acute cholecystitis with obstruction Chronic low back pain Constipation COVID-19 Encounter to establish care GERD (gastroesophageal reflux disease) Hx of colonic polyps Nausea & vomiting Personal history of nicotine dependence Right ear pain Smoker Surgical History Surgical History Hx laparoscopic cholecystectomy 11/16/20 Family History Family History Grandparent Diabetes mellitus, Onset Age: 76 Acute myocardial infarction, Onset Age: 72 Family history of kidney disease, Onset Age: 76 Family history of Alzheimer's disease, Onset Age: 72 Family history of dementia, Onset Age: 74 Father Lung cancer Diabetes mellitus Hypertension High cholesterol Mother Diabetes mellitus Hypertension High cholesterol Social History Social History Smoking packs per day: 0.5 Smoking cigarettes per day: 10.0 Years smoked: 10 Smoking pack-years: 5.00 Smoking status: Current every day smoker Tobacco type: cigarettes Second hand tobacco smoke exposure: No Alcohol intake: never Substance use: never Substance use type: does not use Do You Feel Safe in your Home?: Yes Lack of Transportation: No Lack of Food: Never True Current Housing: I Have Housing Concerned About Future Housing: No Difficulty Paying Gas/Electric Bills: No Difficulty Paying for Meds: No Currently Unemployed: No Education: Trade/Vocational Certificate Difficulty w/ Childcare or Family Care: No Living arrangements: with family Occupation/Education: occupation 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
--- NOTE | 2023-10-13 13:59 | WPDHPUPDATE1 ---
History and Physical Update Update Date/Time: 10/13/23 13:59 History and Physical has been reviewed, including an updated exam of the patient. There are NO changes in the patient's condition. Risks, benefits, and alternatives have been discussed and questions answered. Patient agrees to proceed with procedure.
--- NOTE | 2023-10-13 14:25 | WPDANESEPPF ---
Anes - Initial Pre Proc Eval Procedure: Operation Date: 10/13/23 14:30 Proposed Procedures p Lap Sigmoid Colon Resection - Henrry Benton DO Date/Time: 10/13/23 14:25 Surgeon: Henrry Benton DO Pre Op Diagnosis: Sigmoid diverticulitis with micorperforation Patient Data Age: 43 Gender: F Height: 1.68 m Weight: 94.6 kg Last Vital Signs Temp 37.2 C 10/13/23 12:08 Pulse 105 H 10/13/23 08:36 Resp 20 10/13/23 08:36 BP 125/58 L 10/13/23 06:00 Pulse Ox 95 10/13/23 08:36 O2 Del Method Room Air 10/13/23 08:36 FiO2 21 10/13/23 08:36 Allergies Allergy/AdvReac Type Severity Reaction Status Date / Time Sulfa (Sulfonamide Allergy Intermediate Urticaria Verified 10/13/23 06:08 Antibiotics) sulfamethoxazole AdvReac Severe Hives Verified 10/13/23 06:08 [From Bactrim] trimethoprim [From Bactrim] AdvReac Severe Hives Verified 10/13/23 06:08 Home Medications Medication Instructions Recorded Confirmed Type buprenorphine 2 mg-naloxone 0.5 mg 1.5 film buccal DAILY 05/24/21 10/13/23 History sublingual film (Suboxone) hydrocortisone acetate 25 mg 25 mg RECTAL BID #24 ea 01/30/23 10/13/23 Rx rectal suppository (Anusol-HC) ondansetron 4 mg disintegrating 4 mg PO Q6H PRN nausea and 05/30/23 10/13/23 Rx tablet vomiting #20 tabs bimatoprost 0.03 % eye drops 1 drp EACH EYE QPM #5 mL 08/06/23 10/13/23 Rx clindamycin phosphate 1 % topical 1 applic topical BID #60 grams 08/06/23 10/13/23 Rx gel tretinoin 0.1 % topical cream 1 applic topical ONCE #20 grams 08/06/23 10/13/23 Rx (Retin-A) sumatriptan succinate 50 mg tablet See Rx Instructions PO .COMPLEX 09/09/23 10/13/23 Rx (Imitrex) PRN Migraine Headache #14 tabs dextroamphetamine-amphetamine ER 20 mg PO DAILY #30 caps 09/19/23 10/13/23 Rx 20 mg 24hr capsule,extend release (Adderall XR) Laboratory Tests 10/13/23 00:46 WBC 15.2 H K/mm3 (4.5-10.0) RBC 4.66 M/mm3 (4.2-5.4) Hgb 13.8 g/dL (12.0-15.0) Hct 41.6 % (37.0-47.0) MCV 89.3 fl (80-100) MCH 29.6 pg (26-34) MCHC 33.2 g/dl (32-36) RDW 13.7 % (11.5-14.5) Plt Count 271 k/mm3 (150-375) MPV 10.9 H fl (7.4-10.4) Immature Gran % (Auto) 0.3 % (0-0.5) Neut % (Auto) 75.2 H % (45.5-73.1) Lymph % (Auto) 18.5 % (18.3-44.2) Fleming % (Auto) 5.2 % (2.6-8.5) Eos % (Auto) 0.5 % (0-4.4) Baso % (Auto) 0.3 % (0.2-1.2) Lymph # (Auto) 2.81 K/mm3 (0.9-3.2) Fleming # (Auto) 0.8 H K/mm3 (0.1-0.6) Eos # (Auto) 0.1 K/mm3 (0-0.3) Baso # (Auto) 0.0 K/mm3 (0.0-0.1) Abs Immat Gran (auto) 0.04 H K/mm3 (0.00-0.031) Absolute Neuts (auto) 11.4 H K/mm3 (1.3-6.7) Absolute Nucleated RBC 0.000 K/mm3 (0.0-0.012) Nucleated RBC % 0.0 % (0.0-0.2) PT 13.4 Seconds (11.1-14.7) INR 1.0 APTT 28.9 Seconds (22.3-36.8) Sodium 137 mmol/L (137-145) Potassium 3.5 mmol/L (3.4-5.0) Chloride 98 mmol/L (98-107) Carbon Dioxide 30 mmol/L (22-30) Anion Gap 9 mmol/L (4-12) BUN 12 mg/dL (7-17) Creatinine 0.70 mg/dL (0.7-1.0) Estim Creat Clear Calc 83 ml/min Estimated GFR > 60 (59 - ) Glucose 110 mg/dL (65-110) Lactic Acid 0.7 mmol/L (0.7-2.0) Calcium 9.1 mg/dL (8.4-10.2) Total Bilirubin 0.5 mg/dL (0.2-1.3) AST 35 U/L (14-36) ALT 25 U/L (6-35) Alkaline Phosphatase 101 U/L (38-126) Total Protein 7.0 g/dL (6.3-8.2) Albumin 4.2 g/dL (3.5-5.1) Lipase 37 U/L (23-300) Urine Color Yellow (Yellow) Urine Appearance Clear (Clear) Urine pH 6.0 (5.0-9.0) Ur Specific Viola 1.006 (1.001-1.035) Urine Protein Negative mg/dL (Negative) Urine Glucose (UA) Negative mg/dL (Negative) Urine Ketones Negative mg/dL (Negative) Ur Blood (Man) Negative (Negative) Urine Nitrate Negative (Negative) Urine Bilir
[2023-10-13] MEDS: LACTATED RINGERS 1,000 ML 30 ML IV CONT (16:56)
[2023-10-13] MEDS: BUPIVACAINE/EPINEPHRINE 0.5% 10 ML VIAL 30 ML INFILTRATE (17:01)
[2023-10-13] MEDS: HYDROmorphone HCL INJ (*CRX) 1 MG/ML SYR 0.25 MG IV PUSH ×8 (18:11→18:56)
--- NOTE | 2023-10-13 18:11 | PM.OP ---
Procedure Note - Brief Procedure Note - Brief Date of procedure: 10/13/23 Perforated sigmoid diverticulitis, sepsis Post-op diagnosis: Same Procedure performed: Hand assisted laparoscopic sigmoid colectomy with end descending colostomy Surgeon: Henrry Benton DO Anesthesia: GETA Findings: Perforation on mid sigmoid medial side. Rectum appeared healthy, but proximal descending colon appeared indurated and dilated, filled with solid stool. Attempted stapled EEA twice but descending colon tissue was too indurated and the tissue fractured each time the stapler was fired. Decision was then made to perform end descending colostomy. There was minimal purulent fluid and no spillage of stool during the surgery. Abdomen and pelvis was irrigated with sterile saline. Estimated blood loss (mL): 50 Pathology: Yes (sigmoid colon, stapled end distal) Complications: No immediate complications Condition: Stable Disposition: Floor
[2023-10-13] MEDS: oxyCODONE HCL (*CRX) 5 MG TAB IR 10 MG PO (19:39)
[2023-10-13] MEDS: IBUPROFEN IV 800 MG/200 ML 800 MG/200 ML BAG 400 MG IVPB (19:39)
[2023-10-13] MEDS: ACETAMINOPHEN 325 MG TABLET 650 MG PO (23:24)
[2023-10-14] MEDS: oxyCODONE HCL (*CRX) 5 MG TAB IR 10 MG PO ×6 (00:05→23:01)
[2023-10-14 00:45] VITALS: BP 119/51; PULSE 100; RESP 18; TEMP 36.9; O2SAT 94
[2023-10-14] MEDS: ONDANSETRON INJ 4 MG/2 ML VIAL IV PUSH ×2 (04:02→20:42)
[2023-10-14] MEDS: SODIUM CHLORIDE 0.9% IV 1,000 ML 125 ML IV CONT (04:02)
[2023-10-14] MEDS: HYDROmorphone HCL INJ (*CRX) 1 MG/ML SYR IV PUSH ×2 (04:02→13:20)
[2023-10-14] MEDS: PIPERACILLN/TAZ 3.375GM/NS50ML 3.375 GM/50 ML BAG IVPB ×4 (04:14→20:40)
[2023-10-14] MEDS: IBUPROFEN IV 800 MG/200 ML 800 MG/200 ML BAG 400 MG IVPB ×3 (04:24→20:41)
[2023-10-14] MEDS: ACETAMINOPHEN 325 MG TABLET 650 MG PO ×3 (04:25→17:21)
[2023-10-14 04:35] LABS: Hemoglobin 12.9 g/dL (12.0-15.0); Mean Corpuscular HGB Conc 33.1 g/dl (32-36); Mean Corpuscular Hemoglobin 29.7 pg (26-34); Mean Corpuscular Volume 89.7 fl (80-100); Mean Platelet Volume 10.9 fl (7.4-10.4); Platelet Count Result 238 k/mm3 (150-375); Red Blood Count 4.35 M/mm3 (4.2-5.4); White Blood Count 20.4 K/mm3 (4.5-10.0)
[2023-10-14 04:41] VITALS: BP 119/70; PULSE 106; RESP 18; TEMP 36.8; O2SAT 94
[2023-10-14 04:46] LABS: Anion Gap 12 mmol/L (4-12); Blood Urea Nitrogen 7 mg/dL (7-17); Calcium 7.8 mg/dL (8.4-10.2); Carbon Dioxide 19 mmol/L (22-30); Chloride 105 mmol/L (98-107); Estimated CRCL calculation 139 ml/min; Estimated Glomerular Filt Rate > 60; Glucose 90 mg/dL (65-110); Potassium 3.5 mmol/L (3.4-5.0); Sodium 136 mmol/L (137-145)
--- NOTE | 2023-10-14 07:05 | WPDANESPN ---
Anes - Prog Note Post-Op Date/Time: 10/14/23 07:05 Cardiovascular status: normal Respiratory status: normal Airway patency: baseline Mental status: baseline Post-Op hydration status: normal Vital Signs: Last Vital Signs Temp 36.8 C 10/14/23 04:41 Pulse 106 H 10/14/23 04:41 Resp 18 10/14/23 04:41 BP 119/70 10/14/23 04:41 Pulse Ox 94 10/14/23 04:41 O2 Del Method Room Air 10/13/23 18:57 O2 Flow Rate 6 10/13/23 17:46 FiO2 21 10/13/23 08:36 Pain Score (VAS): Patient asleep, no nonverbal signs of pain present at this time. I/O: Intake & Output 10/13/23 10/13/23 10/14/23 15:59 23:59 07:59 Intake Total 1208.3 375 1000 Output Total 60 902 Balance 1208.3 315 98 Laboratory Tests 10/14/23 04:20 10/14/23 04:20 10/14/23 04:20 WBC 20.4 H RBC 4.35 Hgb 12.9 Hct 39.0 MCV 89.7 MCH 29.7 MCHC 33.1 RDW 14.0 Plt Count 238 MPV 10.9 H Sodium 136 L Potassium 3.5 Chloride 105 Carbon Dioxide 19 L Anion Gap 12 BUN 7 D Creatinine 0.50 L Estim Creat Clear Calc 139 Estimated GFR > 60 Glucose 90 Calcium 7.8 L Microbiology 10/13/23 04:08 Blood Blood Culture - Preliminary 10/13/23 04:08 Blood Blood Culture - Preliminary Post-procedural complaints: none Patient Feedback: Patient satisfied with anesthetic care.
[2023-10-14 07:45] VITALS: PULSE 102; RESP 20; O2SAT 93
--- NOTE | 2023-10-14 09:27 | PM.PNGS ---
Progress Note: A&P Assessment and Plan (1) Diverticulitis of large intestine with perforation without abscess or bleeding: Code(s): K57.20 - Diverticulitis of large intestine with perforation and abscess without bleeding Status: Acute Assessment and Plan: POD#1 after MERLINE sigmoid colectomy with end descending colostomy Will start a clear liquid diet Continue IV abx Increase activity and get up to the chair today (2) Sepsis: Qualifiers: Sepsis acute organ dysfunction status: without acute organ dysfunction Sepsis type: sepsis due to unspecified organism Qualified Code(s): A41.9 - Sepsis, unspecified organism Code(s): A41.9 - Sepsis, unspecified organism Status: Acute Assessment and Plan: Secondary to perforated diverticulitis. S/p source control as mentioned above. Blood cx pending. Continue IV abx (3) Opioid dependence in remission: Code(s): F11.21 - Opioid dependence, in remission Status: Acute (4) Smoker: Code(s): F17.200 - Nicotine dependence, unspecified, uncomplicated Status: Acute Plan I have discussed the patient's case and plan of care with Dr. Benton. Subjective Subjective Date/Time Seen: 10/14/23 09:27 Post Op day: 1 (MERLINE sigmoid colectomy with end descending colostomy) Patient reports: afebrile (since yesterday) Interval history: She is this morning and denies any nausea or vomiting since surgery. She is complaining of left-sided and upper abdominal pain. Colostomy with no stool output. Figueroa catheter in place. Ostomy nurses have been consulted. Review of Systems Review of Systems: All systems reviewed & are unremarkable except as noted in HPI and below Exam Const: General: no acute distress Orientation/consciousness: patient oriented x3 GI: Inspection: incision (incisions dry and glue intact) and other (colostomy with no stool or gas in bag, stoma pink and viable) GI Palp: Yes Soft to palpation, Yes Tenderness to palpation present (GI) (incisional and left-sided tenderness) and No Guarding due to palpation present (GI) Auscultation: Hypoactive bowel sounds present Urinary Catheter: Urinary Catheter: patent and draining and urine clear Objective Data Vital Signs Vital Signs: Vital Signs - 24 hr 10/13/23 10:23 10/13/23 11:09 10/13/23 12:08 Temperature 101.1 F H 101.1 F H 98.9 F Pulse Rate Respiratory Rate Blood Pressure Pulse Oximetry Oxygen Delivery Oxygen Flow Rate Fraction of Inspired Oxygen 10/13/23 17:46 10/13/23 18:00 10/13/23 18:15 Temperature 97.8 F Pulse Rate 90 94 91 Respiratory Rate 16 20 16 Blood Pressure 113/58 L 106/64 118/58 L Pulse Oximetry 98 100 98 Oxygen Delivery Simple Face Mask Room Air Room Air Oxygen Flow Rate 6 Fraction of Inspired Oxygen 10/13/23 18:30 10/13/23 18:45 10/13/23 18:57 Temperature Pulse Rate 96 93 92 Respiratory Rate 18 22 H 23 H Blood Pressure 110/76 116/64 114/77 Pulse Oximetry 96 96 94 Oxygen Delivery Room Air Room Air Room Air Oxygen Flow Rate Fraction of Inspired Oxygen 10/13/23 19:00 10/13/23 19:15 10/13/23 19:45 Temperature 98.0 F 98.0 F 98.9 F Pulse Rate 93 93 90 Respiratory Rate 18 18 18 Blood Pressure 117/71 117/71 125/85 Pulse Oximetry 94 94 96 Oxygen Delivery Oxygen Flow Rate Fraction of Inspired Oxygen 10/13/23 20:45 10/14/23 00:45 10/14/23 04:41 Temperature 98.2 F 98.5 F 98.2 F Pulse Rate 94 100 106 H Respiratory Rate 18 18 18 Blood Pressure 123/62 119/51 L 119/70 Pulse Oximetry 95 94 94 Oxygen Delivery Oxygen Flow Rate Fraction of Inspired Oxygen 10/14/23 07:45 Temperature Pulse Rate 102 H Respiratory Rate 20 Blood Pressure Pulse Oximetry 93 Oxygen Delivery Room Air Oxygen Flow Rate Fraction of Inspired Oxygen 21 Intake/Output Intake/Output: Intake & Output 10/11/23 10/12/23 10/13/23 10/14/23 23:59 23:59 23:59 23:59 Intake Total 2633.3 1
[2023-10-14] MEDS: ENOXAPARIN 40 MG/0.4 ML SYRINGE SUB-Q (09:29)
[2023-10-14] MEDS: HYDROmorphone HCL INJ (*CRX) 1 MG/ML SYR 0.5 MG IV PUSH (10:55)
[2023-10-14 12:45] VITALS: BP 103/56; PULSE 101; RESP 22; TEMP 36.2; O2SAT 97
[2023-10-14] MEDS: HYDROmorphone HCL INJ (*CRX) 1 MG/ML SYR 1.5 MG IV PUSH ×2 (15:41→20:39)
[2023-10-14] MEDS: SODIUM CHLORIDE 0.9% IV 1,000 ML 100 ML IV CONT ×2 (15:45→20:40)
[2023-10-14 15:56] VITALS: BP 116/61; PULSE 95; RESP 16; TEMP 37.5; O2SAT 96
[2023-10-14 20:43] VITALS: BP 122/63; PULSE 99; RESP 16; TEMP 36.9; O2SAT 96
[2023-10-15] MEDS: ACETAMINOPHEN 325 MG TABLET 650 MG PO ×4 (00:10→17:34)
[2023-10-15] MEDS: HYDROmorphone HCL INJ (*CRX) 1 MG/ML SYR 1.5 MG IV PUSH ×4 (00:10→22:55)
[2023-10-15] MEDS: PIPERACILLN/TAZ 3.375GM/NS50ML 3.375 GM/50 ML BAG IVPB ×4 (02:00→20:39)
[2023-10-15] MEDS: oxyCODONE HCL (*CRX) 5 MG TAB IR 10 MG PO ×5 (03:51→23:49)
[2023-10-15] MEDS: IBUPROFEN IV 800 MG/200 ML 800 MG/200 ML BAG 400 MG IVPB ×2 (04:17→10:58)
[2023-10-15 05:10] LABS: Hematocrit 37.8 % (37.0-47.0); Hemoglobin 11.5 g/dL (12.0-15.0); Mean Corpuscular HGB Conc 30.4 g/dl (32-36); Mean Corpuscular Hemoglobin 29.1 pg (26-34); Mean Corpuscular Volume 95.7 fl (80-100); Platelet Count Result 196 k/mm3 (150-375); Red Blood Count 3.95 M/mm3 (4.2-5.4); Red Cell Distribution Width 14.2 % (11.5-14.5)
[2023-10-15 05:15] VITALS: BP 116/62; PULSE 101; RESP 14; TEMP 36.8; O2SAT 100
[2023-10-15 05:25] LABS: Anion Gap 9 mmol/L (4-12); Blood Urea Nitrogen 7 mg/dL (7-17); Calcium 7.2 mg/dL (8.4-10.2); Carbon Dioxide 21 mmol/L (22-30); Chloride 105 mmol/L (98-107); Estimated CRCL calculation 139 ml/min; Estimated Glomerular Filt Rate > 60; Glucose 108 mg/dL (65-110); Potassium 3.1 mmol/L (3.4-5.0); Sodium 135 mmol/L (137-145)
[2023-10-15] MEDS: HYDROmorphone HCL INJ (*CRX) 1 MG/ML SYR IV PUSH (06:30)
--- NOTE | 2023-10-15 09:01 | W.PM.PROC2 ---
Procedure Note - Detailed Date of Procedure 10/13/23 Pre-op Diagnosis Sigmoid diverticulitis with perforation, sepsis Post-op Diagnosis Same Procedure Performed Hand assisted laparoscopic sigmoid colectomy end descending colostomy Surgeon Henrry Benton, DO Anesthesia General and Local (0.5% bupivacaine with epinephrine) Indications This is a 43-year-old woman who presented to the emergency department with left lower quadrant abdominal pain for the past 2 days. She was noted to have an elevated white blood count and tachycardia in the emergency department. CT showed evidence of diverticulitis with microperforation. He was started on broad-spectrum antibiotics and was admitted for further treatment. Her pain continued to be severe and was now becoming diffuse with peritoneal signs. She also began spiking a fever. Discussions were made with the patient about options of continued nonoperative management verses proceeding with emergent surgery. Risks associated with each option were discussed in detail. Patient decided it would be best to proceed with surgery. I have recommended emergent hand assisted laparoscopic sigmoid colectomy, possible ostomy, possible open. Findings Hand assisted laparoscopic sigmoid colectomy was performed. The perforation was identified along the medial aspect of the mid sigmoid colon and there was 1 loop of small bowel adherent close to this area. There was some scant purulence drainage in the pelvis but no feculent drainage. The rectum appeared healthy and viable distal to the sigmoid. The descending colon appeared slightly inflamed, dilated, and was filled with stool. I identified an area on the descending colon that appeared to be far enough away from the area of perforation. The proximal transection point was chosen and attempted end-to-end anastomosis was performed. The descending colon tissue was very friable and even though this was not under any tension the tissue appeared to tear away from the anvil as soon as the stapler was closed and fired. I attempted this a 2nd time and still was left with the same result. The descending colon just did not appear healthy enough to perform a primary anastomosis, therefore decision was made to give patient an end descending colostomy. The remainder of the abdomen appeared healthy and infectious signs still appeared very early. Description of Procedure Procedure as well as risks benefits and alternatives were explained to the patient. Written consent was obtained and placed in chart prior to procedure. Patient was brought back to surgical suite. She was placed supine on operating table. Time-out was done to confirm patient procedure. She was then intubated by the anesthesia department. She was re-positioned to modified lithotomy position. Her abdomen was prepped and draped in sterile fashion using chlorhexidine prep. Her perirectal area was prepped and draped in sterile fashion using Betadine prep. A 7 centimeter vertical incision was made inferior to the umbilicus using a 15 blade scalpel. Electrocautery was used for hemostasis and for dissection down through Neal's fascia. The linea alba was then incised using electrocautery. The peritoneum was bluntly entered using a curved hemostats. I carefully inspected the abdomen through the small hand port incision, and then placed the wound protector at this incision followed by the gel port with a 5 millimeter trocar placed through it. Carbon dioxide insufflation was then used to create a pneumoperitoneum. The abdomen was inspected, and no significant abnormalities were identified. The patient was then placed in steep Trendelenburg position and rotated to the right. 0.5% bupivacaine with epinephrine was infiltrated locally at each of the locations for port placement. A 5 millimeter incision was made in the suprapubic region and in the right upper quadrant and 5 millimeter ports were placed under direct visualization. A 12
[2023-10-15] MEDS: POTASSIUM CHLORIDE 20 MEQ ER TABLET 40 MEQ PO (09:23)
[2023-10-15] MEDS: ENOXAPARIN 40 MG/0.4 ML SYRINGE SUB-Q (11:02)
--- NOTE | 2023-10-15 11:34 | PM.PNGS ---
Progress Note: A&P Assessment and Plan (1) Diverticulitis of large intestine with perforation without abscess or bleeding: Code(s): K57.20 - Diverticulitis of large intestine with perforation and abscess without bleeding Status: Acute Assessment and Plan: Continue IV Zosyn Advance to full liquid diet and stop IV fluids Continue ostomy education and training (2) Hypokalemia: Code(s): E87.6 - Hypokalemia Status: Acute Assessment and Plan: Replace, monitor (3) Bacteremia: Code(s): R78.81 - Bacteremia Status: Acute Assessment and Plan: Staph epidermidis and gram + bacilli isolated so far. No susceptibilities back yet. (4) Sepsis: Qualifiers: Sepsis type: sepsis due to unspecified organism Sepsis acute organ dysfunction status: without acute organ dysfunction Qualified Code(s): A41.9 - Sepsis, unspecified organism Code(s): A41.9 - Sepsis, unspecified organism Status: Acute (5) Opioid dependence in remission: Code(s): F11.21 - Opioid dependence, in remission Status: Acute Subjective Subjective Date/Time Seen: 10/15/23 11:34 Interval history: Tolerating clear liquids. Having some stool in ostomy bag. Pain improving. Exam GI: Inspection: non-distended, incision (intact with glue) and other (Ostomy red, viable, stool in bag) GI Palp: Yes Soft to palpation and Yes Tenderness to palpation present (GI) (incisional) Auscultation: normal bowel sounds Objective Data Vital Signs Vital Signs: Vital Signs - 24 hr 10/14/23 12:45 10/14/23 15:56 10/14/23 20:43 Temperature 36.2 C L 37.5 C 36.9 C Pulse Rate 101 H 95 99 Respiratory Rate 22 H 16 16 Blood Pressure 103/56 L 116/61 122/63 Pulse Oximetry 97 96 96 Oxygen Delivery 10/15/23 05:15 10/15/23 09:20 Temperature 36.8 C Pulse Rate 101 H Respiratory Rate 14 Blood Pressure 116/62 Pulse Oximetry 100 Oxygen Delivery Room Air Intake/Output Intake/Output: Intake & Output 10/12/23 10/13/23 10/14/23 10/15/23 23:59 23:59 23:59 23:59 Intake Total 2633.3 4281.7 1008 Output Total 60 1402 451 Balance 2573.3 2879.7 557 Meds/Results Medications: Active Medications Generic Name Dose Route Start Last Admin Trade Name Freq PRN Reason Stop Dose Admin Acetaminophen 650 mg 10/14/23 00:00 10/15/23 06:16 Acetaminophen 325 Mg Tablet PO 650 mg Q6HR MARY Administration Enoxaparin Sodium 40 mg 10/14/23 09:00 10/15/23 11:02 Enoxaparin 40 Mg/0.4 Ml Syringe SUB-Q 40 mg DAILY MARY Administration Hydromorphone HCl 1 mg 10/14/23 14:13 10/15/23 06:30 Hydromorphone Hcl Inj (*Crx) 1 Mg/Ml Syr IV PUSH 1 mg Q2H PRN Administration Breakthrough Pain Rated 4-6 or NPO Hydromorphone HCl 1.5 mg 10/14/23 14:13 10/15/23 02:50 Hydromorphone Hcl Inj (*Crx) 1 Mg/Ml Syr IV PUSH 1.5 mg Q2H PRN Administration Breakthrough Pain Rated 7-10 or NPO Piperacillin/Tazobactam/Dextrose 3.375 gm in 50 mls @ 100 mls/hr 10/13/23 04:00 10/15/23 09:24 Zosyn 3.375 Gm/Ns 50 Ml IVPB 100 mls/hr Q6H MARY Administration Ibuprofen 800 mg in 200 mls @ 400 mls/hr 10/13/23 19:00 10/15/23 10:58 Caldolor 800 Mg/200 Ml IVPB 400 mls/hr Q6H PRN Administration Breakthrough Pain Rated 1-3 or NPO Latanoprost 1 drop 10/13/23 18:00 10/14/23 17:21 Latanoprost 0.005% Op Soln 2.5 Ml Btl EACH EYE Not Given QPM MARY Naloxone HCl 0.1 mg 10/13/23 19:00 Naloxone Hcl 0.4 Mg/Ml Vial IV PUSH Q2M PRN Opiate Reversal Ondansetron HCl 4 mg 10/13/23 03:40 10/14/23 20:42 Ondansetron Inj 4 Mg/2 Ml Vial IV PUSH 4 mg Q4H PRN Administration Nausea Oxycodone HCl 5 mg 10/13/23 19:00 Oxycodone Hcl (*Crx) 5 Mg Tab Ir PO Q4H PRN Pain Rated 4-6 Oxycodone HCl 10 mg 10/13/23 19:00 10/15/23 09:23 Oxycodone Hcl (*Crx) 5 Mg Tab Ir PO 10 mg Q4H PRN Administration Pain Rated 7-10 Sumatrip
[2023-10-15 14:00] VITALS: BP 113/53; PULSE 95; RESP 16; TEMP 36.7; O2SAT 100
[2023-10-15 19:50] VITALS: PULSE 95; RESP 16; O2SAT 100
[2023-10-15] MEDS: ONDANSETRON INJ 4 MG/2 ML VIAL IV PUSH (20:39)
[2023-10-15] MEDS: SODIUM CHLORIDE 0.9% IV 100 ML 10 ML (20:40)
[2023-10-15 21:15] VITALS: BP 114/63; PULSE 90; RESP 16; TEMP 36.6; O2SAT 100
[2023-10-16] MEDS: ACETAMINOPHEN 325 MG TABLET 650 MG PO ×5 (00:58→23:54)
[2023-10-16] MEDS: PIPERACILLN/TAZ 3.375GM/NS50ML 3.375 GM/50 ML BAG IVPB ×4 (00:59→19:53)
[2023-10-16] MEDS: oxyCODONE HCL (*CRX) 5 MG TAB IR 10 MG PO ×2 (04:00→09:09)
[2023-10-16 05:06] LABS: Hematocrit 36.3 % (37.0-47.0); Hemoglobin 11.7 g/dL (12.0-15.0); Mean Corpuscular HGB Conc 32.2 g/dl (32-36); Mean Corpuscular Hemoglobin 29.3 pg (26-34); Mean Platelet Volume 11.3 fl (7.4-10.4); Platelet Count Result 250 k/mm3 (150-375); Red Blood Count 3.99 M/mm3 (4.2-5.4); White Blood Count 12.1 K/mm3 (4.5-10.0)
[2023-10-16 05:15] LABS: Anion Gap 8 mmol/L (4-12); Blood Urea Nitrogen 6 mg/dL (7-17); Calcium 7.9 mg/dL (8.4-10.2); Carbon Dioxide 25 mmol/L (22-30); Chloride 104 mmol/L (98-107); Estimated CRCL calculation 169 ml/min; Estimated Glomerular Filt Rate > 60; Glucose 108 mg/dL (65-110); Potassium 3.4 mmol/L (3.4-5.0); Sodium 137 mmol/L (137-145)
[2023-10-16 05:30] VITALS: BP 113/54; PULSE 94; RESP 16; TEMP 36.5; O2SAT 97
[2023-10-16] MEDS: ENOXAPARIN 40 MG/0.4 ML SYRINGE SUB-Q (09:08)
--- NOTE | 2023-10-16 12:54 | PM.PNGS ---
Progress Note: A&P Assessment and Plan (1) Diverticulitis of large intestine with perforation without abscess or bleeding: Code(s): K57.20 - Diverticulitis of large intestine with perforation and abscess without bleeding Status: Acute Assessment and Plan: Continue IV Zosyn Advance to regular diet Continue ostomy education and training Possibly home tomorrow (2) Bacteremia: Code(s): R78.81 - Bacteremia Status: Acute Assessment and Plan: Staph epidermidis and gram + bacilli isolated so far. (3) Sepsis: Qualifiers: Sepsis type: sepsis due to unspecified organism Sepsis acute organ dysfunction status: without acute organ dysfunction Qualified Code(s): A41.9 - Sepsis, unspecified organism Code(s): A41.9 - Sepsis, unspecified organism Status: Acute (4) Opioid dependence in remission: Code(s): F11.21 - Opioid dependence, in remission Status: Acute Subjective Subjective Date/Time Seen: 10/16/23 12:54 Interval history: Tolerating full liquids. Ostomy output has picked up. No fevers. Exam GI: Inspection: non-distended, incision (intact with glue) and other (ostomy functioning) GI Palp: Yes Soft to palpation and Yes Tenderness to palpation present (GI) (incisional and around ostomy) Objective Data Vital Signs Vital Signs: Vital Signs - 24 hr 10/15/23 14:00 10/15/23 19:50 10/15/23 21:15 Temperature 36.7 C 36.6 C Pulse Rate 95 95 90 Respiratory Rate 16 16 16 Blood Pressure 113/53 L 114/63 Pulse Oximetry 100 100 100 Oxygen Delivery Room Air Fraction of Inspired Oxygen 21 10/16/23 05:30 10/16/23 09:00 Temperature 36.5 C Pulse Rate 94 Respiratory Rate 16 Blood Pressure 113/54 L Pulse Oximetry 97 Oxygen Delivery Room Air Fraction of Inspired Oxygen Intake/Output Intake/Output: Intake & Output 10/13/23 10/14/23 10/15/23 10/16/23 23:59 23:59 23:59 23:59 Intake Total 2633.3 4281.7 2673 650 Output Total 60 1402 471 100 Balance 2573.3 2879.7 2202 550 Meds/Results Medications: Active Medications Generic Name Dose Route Start Last Admin Trade Name Freq PRN Reason Stop Dose Admin Acetaminophen 650 mg 10/14/23 00:00 10/16/23 06:48 Acetaminophen 325 Mg Tablet PO 650 mg Q6HR MARY Administration Enoxaparin Sodium 40 mg 10/14/23 09:00 10/16/23 09:08 Enoxaparin 40 Mg/0.4 Ml Syringe SUB-Q 40 mg DAILY MARY Administration Hydromorphone HCl 1 mg 10/14/23 14:13 10/15/23 06:30 Hydromorphone Hcl Inj (*Crx) 1 Mg/Ml Syr IV PUSH 1 mg Q2H PRN Administration Breakthrough Pain Rated 4-6 or NPO Hydromorphone HCl 1.5 mg 10/14/23 14:13 10/15/23 22:55 Hydromorphone Hcl Inj (*Crx) 1 Mg/Ml Syr IV PUSH 1.5 mg Q2H PRN Administration Breakthrough Pain Rated 7-10 or NPO Piperacillin/Tazobactam/Dextrose 3.375 gm in 50 mls @ 100 mls/hr 10/13/23 04:00 10/16/23 09:38 Zosyn 3.375 Gm/Ns 50 Ml IVPB Infused Q6H MARY Infusion Ibuprofen 800 mg in 200 mls @ 400 mls/hr 10/13/23 19:00 10/15/23 11:28 Caldolor 800 Mg/200 Ml IVPB Infused Q6H PRN Infusion Breakthrough Pain Rated 1-3 or NPO Latanoprost 1 drop 10/13/23 18:00 10/15/23 17:33 Latanoprost 0.005% Op Soln 2.5 Ml Btl EACH EYE Not Given QPM [facility] Naloxone HCl 0.1 mg 10/13/23 19:00 Naloxone Hcl 0.4 Mg/Ml Vial IV PUSH Q2M PRN Opiate Reversal Ondansetron HCl 4 mg 10/13/23 03:40 10/15/23 20:39 Ondansetron Inj 4 Mg/2 Ml Vial IV PUSH 4 mg Q4H PRN Administration Nausea Oxycodone HCl 5 mg 10/13/23 19:00 Oxycodone Hcl (*Crx) 5 Mg Tab Ir PO Q4H PRN Pain Rated 4-6 Oxycodone HCl 10 mg 10/13/23 19:00 10/16/23 09:09 Oxycodone Hcl (*Crx) 5 Mg Tab Ir PO 10 mg Q4H PRN Administration Pain Rated 7-10 Sumatriptan Succinate 50 mg 10/13/23 13:14 Sumatriptan Succinate 25 Mg Tablet PO PRN PRN Migraine Headache Radiology Results: ITS
[2023-10-16 14:00] VITALS: BP 121/70; PULSE 80; RESP 16; TEMP 36.6; O2SAT 100
[2023-10-16] MEDS: IBUPROFEN IV 800 MG/200 ML 800 MG/200 ML BAG 400 MG IVPB (15:25)
[2023-10-16] MEDS: oxyCODONE HCL (*CRX) 5 MG TAB IR PO ×2 (19:58→23:56)
[2023-10-16 20:00] VITALS: BP 112/68; PULSE 76; RESP 20; TEMP 36.3; O2SAT 99
[2023-10-17 01:26] VITALS: BP 109/63; PULSE 88; RESP 18; TEMP 36.3; O2SAT 97
[2023-10-17] MEDS: PIPERACILLN/TAZ 3.375GM/NS50ML 3.375 GM/50 ML BAG IVPB ×3 (01:41→14:34)
[2023-10-17] MEDS: IBUPROFEN IV 800 MG/200 ML 800 MG/200 ML BAG 400 MG IVPB ×2 (02:32→10:02)
[2023-10-17 05:00] VITALS: BP 119/63; PULSE 85; RESP 18; TEMP 36.1; O2SAT 96
[2023-10-17 05:20] LABS: Hematocrit 31.4 % (37.0-47.0); Hemoglobin 10.2 g/dL (12.0-15.0); Mean Corpuscular HGB Conc 32.5 g/dl (32-36); Mean Corpuscular Hemoglobin 29.1 pg (26-34); Mean Corpuscular Volume 89.5 fl (80-100); Mean Platelet Volume 10.5 fl (7.4-10.4); Platelet Count Result 280 k/mm3 (150-375); Red Blood Count 3.51 M/mm3 (4.2-5.4); Red Cell Distribution Width 13.9 % (11.5-14.5); White Blood Count 11.6 K/mm3 (4.5-10.0)
[2023-10-17 05:40] LABS: Anion Gap 7 mmol/L (4-12); Blood Urea Nitrogen 5 mg/dL (7-17); Calcium 7.7 mg/dL (8.4-10.2); Carbon Dioxide 25 mmol/L (22-30); Chloride 104 mmol/L (98-107); Estimated CRCL calculation 169 ml/min; Estimated Glomerular Filt Rate > 60; Glucose 113 mg/dL (65-110); Sodium 136 mmol/L (137-145)
[2023-10-17] MEDS: ACETAMINOPHEN 325 MG TABLET 650 MG PO ×2 (06:03→12:55)
[2023-10-17] MEDS: POTASSIUM CHLORIDE 20 MEQ ER TABLET 40 MEQ PO (10:01)
--- NOTE | 2023-10-17 13:41 | PM.DS ---
DS: Admitting Diagnosis Discharge Date 10/17/23 Admitting Diagnosis Acute perforated diverticulitis Sepsis Opioid dependence in remission Smoker DS: Discharge Diagnosis Discharge Diagnosis (1) Diverticulitis of large intestine with perforation without abscess or bleeding: Code(s): K57.20 - Diverticulitis of large intestine with perforation and abscess without bleeding Status: Acute (2) Sepsis: Qualifiers: Sepsis type: sepsis due to unspecified organism Sepsis acute organ dysfunction status: without acute organ dysfunction Qualified Code(s): A41.9 - Sepsis, unspecified organism Code(s): A41.9 - Sepsis, unspecified organism Status: Acute (3) Opioid dependence in remission: Code(s): F11.21 - Opioid dependence, in remission Status: Acute Assessment and Plan: Patient with history of opioid use and has been dealing (4) Bacteremia: Code(s): R78.81 - Bacteremia Status: Acute Assessment and Plan: Blood cultures on 10/13/23 positive for staphylococcus epidermidis 1/2 bottles and preliminary showing gram positive bacilli 1/2 bottles. She was treated with IV Zosyn for the perforated diverticulitis while admitted. I discussed the blood culture results with ID pharmacist who feels this could likely be a contaminate. Will be continuing oral antibiotics for another 10 days regardless for the perforated diverticulitis. ID pharmacist agreed with the recommendation of Augmentin 875/125mg BID and metronidazole 500 mg Q8H, which she was discharged with. (5) Hypokalemia: Code(s): E87.6 - Hypokalemia Status: Acute DS: Summary Hospital Course Reason for hospitalization: This is a 43-year-old woman who presented to the emergency department with complaints of left lower quadrant pain that started the day prior. In the emergency department she had a CT of her abdomen and pelvis done which showed evidence of acute diverticulitis with micro perforation. She was admitted in this setting for treatment and surgical evaluation. She has a history of opioid use for chronic pain, but was able to stop this about 2-3 years ago. She has been on Suboxone to help manage this. Hospital Course: She was treated with broad-spectrum IV antibiotics. After admission, she had peritoneal signs on exam and was not showing any signs of improvement, therefore decision was made to proceed with surgical intervention. She underwent Hand assisted laparoscopic sigmoid colectomy end descending colostomy by Dr. Benton on 10/15/23. Wound/ostomy nurses were consulted for ostomy care and education. She was slowly advanced on her diet. Labs were monitored and her WBC count slowly trended down and was 11,000 today. She has also had mild hypokalemia while her diet was being advanced, which was replaced with oral potassium chloride. Will repeat a BMP in 3 days and continue KCL for two days after discharge. With her history of opioid use and suboxone treatment, her pain was initially tough to control, but this did improve and she transitioned to oral pain medication. Her suboxone was held while she was NPO. She has been tolerating her pain today with Tylenol and Ibuprofen and last had oxycodone last night. I discussed the case with Dr. Benton and our pharmacist at [place]. Dr. Benton recommended resuming her Suboxone on discharge while continuing an oral narcotic short-term for post-operative pain control. Patient feels like her pain is better today and she may only need a few tablets for the next few days. She will be sent a few tablets of hydrocodone/acetaminophen for severe pain only as needed. I had a long discussion with the patient regarding even short term opioid use with a history of opioid abuse on Suboxone treatment. She was strongly encouraged to stick to alternating Tylenol and Ibuprofen for the next few days until her pain is improving an only take the hydrocodone if needed if her pain is uncontrolled with the T
[2023-10-17 14:47] VITALS: BP 124/63; PULSE 69; RESP 16; TEMP 36.7; O2SAT 99
== END 2023-10-17 16:26 | disposition home health service (06) | DRG 853 ==
LOC: ANHED 10-13 00:55 → ANH2MED 10-13 05:31
PROVIDERS: Admitting Provider Surgery; Emergency Provider Emergency Medicine; PCP Nurse Practitioner Family; Visit Provider Nurse Practitioner Family
PROC: 0D1E4Z4 Bypass Large Intestine to Cutaneous, Percutaneous Endoscopic Approach (ICD-10-PCS; principal; 2023-10-13 14:30)
DX: A41.9 Sepsis, unspecified organism (principal); K65.0 Generalized (acute) peritonitis; K57.20 Diverticulitis of large intestine with perforation and abscess without bleeding; E87.6 Hypokalemia; K21.9 Gastro-esophageal reflux disease without esophagitis; M54.59 Other low back pain; G89.29 Other chronic pain; F90.9 Attention-deficit hyperactivity disorder, unspecified type; F11.21 Opioid dependence, in remission; F17.210 Nicotine dependence, cigarettes, uncomplicated; Z86.010 Personal history of colon polyps
CPT/HCPCS: 36415; 74177; 80048; 80053; 81003; 81025; 83605; 83690; 85025; 85027; 85610; 85730; 87040; 87077; 87181; 88307; 96361; 96374; 96375; 96376; 99285; A9270; C1729; G0378; J0330; J1100; J1170; J1200; J1650; J1741; J2250; J2371; J2405; J2543; J2704; J3010; J7030; J7120; Q9967

== ENCOUNTER 2023-12-10 07:39 | Outpatient (CLI) | payer OTHER, SELFPAY ==
--- NOTE | 2023-12-10 08:29 | ECG_ITS ---
Test Date: 2023-12-10 08:46:33 Measurements Intervals [place] Rate: 97 P: 57 NH: 133 QRS: 73 QRSD: 102 T: 46 QT: 336 QTc: 428 Interpretive Statements SINUS RHYTHM DELAYED PRECORDIAL R/S TRANSITION BASELINE ARTIFACT- I, III, AVR, AVL BORDERLINE ECG No previous ECG available for comparison Electronically Signed On 12-10-2023 08:52:33 CDT by Devin Villalobos D.O.
[2023-12-10 09:57] LABS: Basophils Percent Auto 0.3 % (0.2-1.2); Eosinophils Percent Auto 0.2 % (0-4.4); Hemoglobin 13.8 g/dL (12.0-15.0); Immature Granulocyte Absolute 0.03 K/mm3 (0.00-0.031); Immature Granulocyte Percent A 0.3 % (0-0.5); Lymphocytes Absolute Auto 2.45 K/mm3 (0.9-3.2); Lymphocytes Percent Auto 21.4 % (18.3-44.2); Mean Corpuscular HGB Conc 32.1 g/dl (32-36); Mean Corpuscular Hemoglobin 29.3 pg (26-34); Mean Corpuscular Volume 91.3 fl (80-100); Mean Platelet Volume 11.9 fl (7.4-10.4); Monocytes Absolute Auto 0.5 K/mm3 (0.1-0.6); Monocytes Percent Auto 4.4 % (2.6-8.5); Neutrophils Absolute Auto 8.4 K/mm3 (1.3-6.7); Neutrophils Percent Auto 73.4 % (45.5-73.1); Platelet Count Result 293 k/mm3 (150-375); Red Blood Count 4.71 M/mm3 (4.2-5.4); Red Cell Distribution Width 13.8 % (11.5-14.5); White Blood Count 11.4 K/mm3 (4.5-10.0)
== END 2023-12-10 07:40 | disposition home or self-care (01) ==
PROVIDERS: PCP Nurse Practitioner Family; Visit Provider Surgery
DX: Z01.818 Encounter for other preprocedural examination (principal); K57.20 Diverticulitis of large intestine with perforation and abscess without bleeding; Z87.891 Personal history of nicotine dependence
CPT/HCPCS: 36415; 85025; 86850; 86900; 86901; 93005

== ENCOUNTER 2023-12-18 17:49 | Inpatient (IN) | payer OTHER, SELFPAY ==
--- NOTE | 2023-12-10 07:45 | PC.NURSE ---
Report to the Outpatient Waiting Room, entrance under the green pavilion located off [facility], at time __09:00am__ on date 12/18/23 . Planned Procedure Time: ___11:00am .? Time changes happen often and if your time is changed the preop area will call you the afternoon before. - You and your visitor will be asked to self-screen and do not enter if you have any COVID symptoms. Please call surgeon if you need to reschedule. - A mask is optional within the hospital at this time. Patients may have clear liquids (water, carbonated beverages, clear teas, apple juice) until 3 hours prior to surgery with a maximum of 20 ounces. - No food from midnight until time of surgery and no smoking - Take only the following medications with a SIP of water on the morning of surgery: ____Antibiotics as prescribed and Tylenol as needed DO NOT STOP ANY OF YOUR OTHER PRESCRIPTION MEDICATIONS PRIOR TO SURGERY EXCEPT THE FOLLOWING Medications to discontinue per physician Pt to hold all vitamins, supplements, herbs and probiotics 3 days prior per Anesthesia Date to take last dose____12/14/23 Please no make-up, nail vincentian, hairspray, perfume, deodorant, or body powder the day of surgery.? No jewelry (including any body piercings) or valuables the day of surgery, leave them at home.? Please take a shower or bath the night before, or the morning of, surgery with an antibacterial soap.? Wear comfortable, loose fitting clothing.? - Jewelry must be removed prior to entering the operating room.? Rings and piercings that are not removed may be cut off. - The hospital will not accept responsibility for valuables.? - Please leave all valuables, including medications, at home the day of surgery. If you are going home after surgery, a licensed hack driver must drive you home.? - NO public transportation without another adult if you receive anesthesia. - We recommend that an adult stay with you for 24 hours following discharge. - We also recommend that you do not drive, make important decision, drink alcoholic beverages, or take any drugs that were not prescribed by your health care provider for at least 24 hours after your discharge time. Follow any additional instructions given to you from your surgeon. Ensure Bundle per , and scrub and Protocol Prep per Dr. Benton Telephone instructions given to __patient and asked if any additional questions and then verbalized understanding. Patient advised to call surgeon office or pre surgery nurse liaison [phone] if any additional questions.
[2023-12-10 07:57] VITALS: BP 119/73; PULSE 99; RESP 16; TEMP 36.8; O2SAT 99; BMI 29.7
[2023-12-18] VITALS (15 sets, daily range): BP systolic 112–130; BP diastolic 55–80; PULSE 93–109; RESP 12–20; TEMP 36.2–36.9; O2SAT 94–100; BMI 30.7
[2023-12-18] MEDS: LACTATED RINGERS 1,000 ML 30 ML IV CONT ×3 (08:15→16:04)
[2023-12-18] MEDS: KETOROLAC 15 MG/ML VIAL (*BKC) IV PUSH (08:30)
[2023-12-18] MEDS: ACETAMINOPHEN 500 MG TABLET 1000 MG PO (08:30)
--- NOTE | 2023-12-18 09:42 | WPDHPUPDATE1 ---
History and Physical Update Update Date/Time: 12/18/23 09:42 History and Physical has been reviewed, including an updated exam of the patient. There are NO changes in the patient's condition. Risks, benefits, and alternatives have been discussed and questions answered. Patient agrees to proceed with procedure.
--- NOTE | 2023-12-18 10:05 | WPDANESEPPF ---
Anes - Initial Pre Proc Eval Procedure: Operation Date: 12/18/23 09:30 Proposed Procedures p Laparoscopic Assisted Colostomy Takedown, Davinci Assisted - Henrry Benton DO Date/Time: 12/18/23 10:05 Surgeon: Henrry Benton DO Pre Op Diagnosis: diverticulitis Patient Data Age: 43 Gender: F Height: 1.66 m Weight: 81.5 kg Last Vital Signs Temp 36.9 C 12/18/23 08:15 Pulse 99 12/18/23 08:15 Resp 14 12/18/23 08:15 BP 124/78 12/18/23 08:15 Pulse Ox 99 12/18/23 08:15 O2 Del Method Room Air 12/18/23 08:15 Allergies Allergy/AdvReac Type Severity Reaction Status Date / Time Sulfa (Sulfonamide Allergy Intermediate Urticaria Verified 12/18/23 08:30 Antibiotics) sulfamethoxazole AdvReac Severe Hives Verified 12/18/23 08:30 [From Bactrim] trimethoprim [From Bactrim] AdvReac Severe Hives Verified 12/18/23 08:30 Home Medications Medication Instructions Recorded Confirmed Type ondansetron 4 mg disintegrating 4 mg PO Q6H PRN nausea and 05/30/23 12/10/23 Rx tablet vomiting #20 tabs bimatoprost 0.03 % eye drops 1 drp EACH EYE QPM #5 mL 08/06/23 12/10/23 Rx tretinoin 0.1 % topical cream 1 applic topical ONCE #20 grams 08/06/23 12/10/23 Rx (Retin-A) sumatriptan succinate 50 mg tablet See Rx Instructions PO .COMPLEX 10/28/23 12/10/23 Rx (Imitrex) PRN Migraine Headache #14 tabs metronidazole 500 mg tablet 500 mg PO .COMPLEX #3 tabs 12/03/23 12/10/23 Rx acetaminophen 650 mg 1,300 mg PO PRN PRN abd pain 12/10/23 12/10/23 History tablet,extended release [id number] 0.4 mg-calcium 162 1 tablet PO DAILY 12/10/23 12/10/23 History mg-iron 18 [id number] tablet dextroamphetamine-amphetamine ER 20 mg PO DAILY #30 caps 12/11/23 Rx 20 mg 24hr capsule,extend release (Adderall XR) Patient hx anesthesia problems: other (had increase HR with her last procedure) Family hx anesthesia problems: none Results Review: All pre-operative results and documents have been reviewed as part of the pre-operative evaluation. [facility] Past Medical History Medical History ADHD BMI 32.0-32.9,adult BMI 34.0-34.9,adult CCC (chronic calculous cholecystitis) Cholelithiasis and acute cholecystitis with obstruction Chronic low back pain Constipation COVID-19 Encounter to establish care GERD (gastroesophageal reflux disease) Hx of colonic polyps Nausea & vomiting Personal history of nicotine dependence Right ear pain Smoker Surgical History Surgical History History of colectomy 10/15/23 Hand assisted laparoscopic sigmoid colectomy end descending colostomy Hx laparoscopic cholecystectomy 11/16/20 Family History Family History Grandparent Diabetes mellitus, Onset Age: 76 Acute myocardial infarction, Onset Age: 72 Family history of kidney disease, Onset Age: 76 Family history of Alzheimer's disease, Onset Age: 72 Family history of dementia, Onset Age: 74 Father Lung cancer Diabetes mellitus Hypertension High cholesterol Mother Diabetes mellitus Hypertension High cholesterol Social History Social History Smoking packs per day: 0.5 Smoking cigarettes per day: 10.0 Years smoked: 23 Smoking pack-years: 11.50 Smoking status: Former smoker Tobacco type: cigarettes Second hand tobacco smoke exposure: No Smoking end date: 11/10/23 Alcohol intake: never Substance use: never Substance use type: does not use Do You Feel Safe in your Home?: Yes Lack of Transportation: No Lack of Food: Never True Current Housing: I Have Housing Concerned About Future Housing: No Difficulty Paying Gas/Electric Bills: No Difficulty Paying for Meds: No Currently Unemployed: No Education: Trade/Vocational Certificate Difficulty w/ Childcare or Family Care: N
[2023-12-18] MEDS: metroNIDAZOLE 500 MG/ISO 100ML 500 MG/100 ML BAG 100 MG IVPB ×2 (10:32→19:59)
[2023-12-18] MEDS: ceFAZolin 2 GM/D5W 50 ML 2 GM/50 ML BAG IVPB (10:33)
[2023-12-18] MEDS: BUPIVACAINE/EPINEPHRINE 0.5% 10 ML VIAL 30 ML INFILTRATE (11:16)
[2023-12-18] MEDS: ceFAZolin SODIUM 1 GM VIAL IV PUSH (14:30)
--- NOTE | 2023-12-18 16:05 | W.PM.PROC2 ---
Procedure Note - Detailed Date of Procedure 12/18/23 Pre-op Diagnosis diverticulitis large intestine with perforation, colostomy status Post-op Diagnosis Same Procedure Performed 1. Attempted robotic assisted laparoscopic takedown of colostomy 2. Open takedown of colostomy with end-to-end hand-sewn colorectal anastomosis 3. Extensive adhesiolysis 4. Open incidental appendectomy Surgeon Henrry Benton, DO Anesthesia General and Local ( 0.5% bupivacaine with epinephrine) Indications this is a 43-year-old woman who presented for colostomy takedown. She has a history of perforated diverticulitis and underwent sigmoid colectomy with end descending colostomy 2 months ago. She has fully healed from the surgery and is wanting to proceed with colostomy takedown. Discussions were made with the patient about treatment options and decision was made to proceed with robotic assisted laparoscopic colostomy takedown, possible open. Findings Attempted robotic assisted laparoscopic colostomy takedown was performed. The patient had extensive adhesions in her pelvis making the surgery very difficult. Some of the adhesions were taken down robotically but then the uterus and adnexa were very scarred down into the pelvis over the rectal stump as well and there were a couple loops of small bowel that were densely adherent down into the pelvis. Decision was then made to convert to open procedure. The remaining small bowel adhesions were carefully taken down to deliver the small bowel out of the pelvis. I then had to carefully identify a plane between the uterus and rectal stump. There were dense adhesions of the right and left adnexa over the rectal stump. After carefully taken down these adhesions I was then able to identify the staple line from the previous surgery. Staple line was very weak and there was not much distal rectum to mobilize. I chose to resect the staple line and perform a hand-sewn end-to-end colorectal anastomosis. There appeared to be adequate length of the descending colon to bring down into the pelvis without tension. I then performed a leak check after completing the anastomosis and there were no signs of air bubbles leaking from the anastomosis. I also chose to perform an appendectomy as the appendix was densely adherent down in the pelvis were many of the adhesions were and removing the appendix will prevent potential future infection. After thoroughly inspecting the abdominal cavity, no other abnormalities were noted. Description of Procedure procedure as well as risks, benefits, and alternatives were discussed with the patient. Written consent was obtained and placed in chart prior to procedure. Patient was brought back to surgical suite. She was placed supine on operating table. Time-out was done to confirm patient and procedure. She was then intubated by the anesthesia department. She was then repositioned into modified lithotomy position and stirrups. Her perirectal region was prepped and draped in sterile fashion using Betadine prep and her abdomen was prepped and draped in sterile fashion using chlorhexidine prep. A Tegaderm dressing was placed over the ostomy site. An 8 mm incision was made in the right upper quadrant and a 5 mm Optiview trocar was advanced through the abdominal layers under direct visualization. Once inside the abdominal cavity, carbon dioxide insufflation was used to create a pneumoperitoneum. Camera was inserted in the abdomen was inspected. A few midline adhesions were identified but no other significant abnormalities were seen. The patient was placed in Trendelenburg position. 12 mm incision was made in the right lower quadrant and a 12 mm trocar was inserted under direct visualization. Three 8 mm incisions were then made in an angle towards the left upper quadrant and 8 mm trocars were inserted under direct visualization. The omental adhesions to the abdominal wall were carefully taken down using abi
[2023-12-18] MEDS: fentaNYL CITRATE INJ (*CRX) 100 MCG/2 ML VIAL 25 MCG IV PUSH ×8 (16:10→16:43)
[2023-12-18] MEDS: ONDANSETRON INJ 4 MG/2 ML VIAL IV PUSH ×2 (16:21→18:28)
[2023-12-18] MEDS: HYDROmorphone HCL INJ (*CRX) 1 MG/ML SYR 0.5 MG IV PUSH ×4 (16:56→17:31)
--- NOTE | 2023-12-18 18:00 | ADMGEN ---
This patient, Mena Morales, was admitted to -. Patient/family oriented to hospital policies and general routines including ID bracelet, bed and alarms, visiting hours, pain management, procedures, bathroom and other care routines, personal items, smoking policy, room service/diet, and visiting hours. Information on how to activate the Rapid Response Team has been discussed. Patient/Family are encouraged to report perceived risks to care and to ask questions if they do not understand what they are told or what they should do.
[2023-12-18] MEDS: oxyCODONE HCL (*CRX) 5 MG TAB IR 10 MG PO (18:28)
[2023-12-18] MEDS: ACETAMINOPHEN 325 MG TABLET 650 MG PO ×2 (18:29→23:03)
[2023-12-18] MEDS: LACTATED RINGERS 1,000 ML 100 ML IV CONT (18:32)
[2023-12-18] MEDS: ceFAZolin 1 GM/NS 50 ML 1 GM/50 ML BAG IVPB (18:32)
[2023-12-18] MEDS: HYDROmorphone HCL INJ (*CRX) 1 MG/ML SYR IV PUSH ×2 (20:00→23:49)
[2023-12-18] MEDS: oxyCODONE HCL (*CRX) 5 MG TAB IR PO (21:53)
[2023-12-19] MEDS: oxyCODONE HCL (*CRX) 5 MG TAB IR 10 MG PO ×5 (01:20→23:56)
[2023-12-19] MEDS: HYDROmorphone HCL INJ (*CRX) 1 MG/ML SYR IV PUSH ×4 (01:43→12:25)
[2023-12-19] MEDS: ceFAZolin 1 GM/NS 50 ML 1 GM/50 ML BAG IVPB (02:25)
[2023-12-19 03:34] VITALS: BP 115/62; PULSE 95; RESP 16; TEMP 36.4; O2SAT 95
[2023-12-19] MEDS: metroNIDAZOLE 500 MG/ISO 100ML 500 MG/100 ML BAG 100 MG IVPB (04:47)
[2023-12-19] MEDS: ONDANSETRON INJ 4 MG/2 ML VIAL IV PUSH ×2 (04:47→11:14)
[2023-12-19 06:31] LABS: Hematocrit 39.4 % (37.0-47.0); Hemoglobin 12.7 g/dL (12.0-15.0); Mean Corpuscular HGB Conc 32.2 g/dl (32-36); Mean Corpuscular Hemoglobin 29.6 pg (26-34); Mean Corpuscular Volume 91.8 fl (80-100); Mean Platelet Volume 11.4 fl (7.4-10.4); Platelet Count Result 263 k/mm3 (150-375); Red Blood Count 4.29 M/mm3 (4.2-5.4); Red Cell Distribution Width 13.6 % (11.5-14.5); White Blood Count 13.8 K/mm3 (4.5-10.0)
[2023-12-19 06:36] LABS: Anion Gap 6 mmol/L (4-12); Blood Urea Nitrogen 5 mg/dL (7-17); Calcium 8.3 mg/dL (8.4-10.2); Carbon Dioxide 28 mmol/L (22-30); Chloride 100 mmol/L (98-107); Estimated CRCL calculation 118 ml/min; Estimated Glomerular Filt Rate > 60; Glucose 103 mg/dL (65-110); Potassium 3.4 mmol/L (3.4-5.0); Sodium 134 mmol/L (137-145)
[2023-12-19] MEDS: LACTATED RINGERS 1,000 ML 100 ML IV CONT ×2 (07:30→17:28)
[2023-12-19 07:34] VITALS: BP 131/68; PULSE 108; RESP 16; O2SAT 95
[2023-12-19 08:03] VITALS: RESP 16; O2SAT 95
[2023-12-19] MEDS: ENOXAPARIN 40 MG/0.4 ML SYRINGE SUB-Q (08:03)
[2023-12-19 11:00] VITALS: BMI 33.5
[2023-12-19] MEDS: ACETAMINOPHEN 325 MG TABLET 650 MG PO ×3 (11:21→23:55)
--- NOTE | 2023-12-19 11:52 | PM.PNGS ---
Progress Note: A&P Assessment and Plan (1) Diverticulitis of large intestine with perforation without abscess or bleeding: Code(s): K57.20 - Diverticulitis of large intestine with perforation and abscess without bleeding Status: Acute Assessment and Plan: Patient recovering about as expected after long difficult colostomy takedown 12/18/23. Still having a lot of pain. Will add Diazepam to her medications. I discussed the lengthy surgery with patient as well as the decision to remove Appendix at time of surgery. Will continue clear liquids today and await return of bowel function. Gradually increase activity as tolerated. (2) Colostomy status: Code(s): Z93.3 - Colostomy status Status: Acute Subjective Subjective Date/Time Seen: 12/19/23 11:52 Post Op day: 1 Patient reports: still having pain, no flatus and no bowel movement Interval history: Doing a little better today but still having a lot of pain. No flatus or BM yet. A little nausea at times. Up to chair this morning. Exam Const: General: comfortable (but still having pain) and no acute distress Orientation/consciousness: patient oriented x3 GI: Inspection: incision (dressing dry) GI Palp: Yes Soft to palpation, Yes Tenderness to palpation present (GI) (incisional) and No Guarding due to palpation present (GI) Auscultation: Hypoactive bowel sounds present Objective Data Vital Signs Vital Signs: Vital Signs - 24 hr 12/18/23 16:04 12/18/23 16:15 12/18/23 16:30 Temperature 97.1 F L Pulse Rate 109 H 101 H 101 H Respiratory Rate 20 19 16 Blood Pressure 123/74 117/73 115/73 Pulse Oximetry 100 100 100 Oxygen Delivery Simple Face Mask Simple Face Mask Simple Face Mask Oxygen Flow Rate 8 8 8 12/18/23 16:45 12/18/23 17:00 12/18/23 17:15 Temperature 97.3 F L Pulse Rate 102 H 105 H 106 H Respiratory Rate 16 20 14 Blood Pressure 129/80 117/65 117/71 Pulse Oximetry 100 100 95 Oxygen Delivery Simple Face Mask Room Air Room Air Oxygen Flow Rate 8 12/18/23 17:25 12/18/23 17:40 12/18/23 17:49 Temperature 97.2 F L Pulse Rate 104 H 103 H 103 H Respiratory Rate 12 18 14 Blood Pressure 122/63 122/74 112/68 Pulse Oximetry 95 94 97 Oxygen Delivery Room Air Room Air Room Air Oxygen Flow Rate 12/18/23 18:15 12/18/23 18:34 12/18/23 18:04 Temperature 97.6 F Pulse Rate 107 H 106 H Respiratory Rate 12 12 Blood Pressure 116/72 130/55 L Pulse Oximetry 98 95 95 Oxygen Delivery Room Air Oxygen Flow Rate 12/18/23 19:34 12/18/23 20:00 12/18/23 23:34 Temperature 97.7 F 97.3 F L Pulse Rate 99 93 Respiratory Rate 20 20 Blood Pressure 117/71 120/72 Pulse Oximetry 95 97 Oxygen Delivery Room Air Oxygen Flow Rate 12/19/23 03:34 12/19/23 07:34 12/19/23 08:03 Temperature 97.5 F L Pulse Rate 95 108 H Respiratory Rate 16 16 16 Blood Pressure 115/62 131/68 Pulse Oximetry 95 95 95 Oxygen Delivery Room Air Oxygen Flow Rate Intake/Output Intake/Output: Intake & Output 12/16/23 12/17/23 12/18/23 12/19/23 23:59 23:59 23:59 23:59 Intake Total 500 1830 Output Total 550 Balance 500 1280 Meds/Results Medications: Active Medications Generic Name Dose Route Start Last Admin Trade Name Freq PRN Reason Stop Dose Admin Acetaminophen 650 mg 12/18/23 18:00 12/19/23 11:21 Acetaminophen 325 Mg Tablet PO 650 mg Q6HR MARY Administration Diazepam 5 mg 12/19/23 13:00 Diazepam (*Crx) 5 Mg Tablet PO TID MARY Enoxaparin Sodium 40 mg 12/19/23 09:00 12/19/23 08:03 Enoxaparin 40 Mg/0.4 Ml Syringe SUB-Q 40 mg DAILY MARY Administration Hydromorphone HCl 1 mg 12/18/23 17:49 12/19/23 08:02 Hydromorphone Hcl Inj (*Crx) 1 Mg/Ml Syr IV PUSH 1 mg Q2H PRN Administration Breakthrough Pain Rated 7-10 or NPO Hydromorphone HCl 0.5 mg 12/18/23 17:49 Hydromorphone Hcl Inj (*Crx) 1 Mg/Ml Syr IV PUSH Q2H PRN Breakthrough Pain Rated 4-6
[2023-12-19] MEDS: diazePAM (*CRX) 5 MG TABLET PO ×2 (12:25→16:43)
--- NOTE | 2023-12-19 12:37 | WPDANESPN ---
Anes - Prog Note Post-Op Date/Time: 12/19/23 12:37 Cardiovascular status: normal Respiratory status: normal Airway patency: baseline Mental status: baseline Post-Op hydration status: normal Vital Signs: Last Vital Signs Temp 36.4 C L 12/19/23 03:34 Pulse 108 H 12/19/23 07:34 Resp 16 12/19/23 08:03 BP 131/68 12/19/23 07:34 Pulse Ox 95 12/19/23 08:03 O2 Del Method Room Air 12/19/23 08:03 O2 Flow Rate 8 12/18/23 16:45 Pain Score (VAS): 6 I/O: Intake & Output 12/18/23 12/19/23 12/19/23 23:59 07:59 15:59 Intake Total 450 1350 480 Output Total 550 Balance 450 800 480 Laboratory Tests 12/19/23 06:02 12/19/23 06:02 12/19/23 06:02 WBC 13.8 H RBC 4.29 Hgb 12.7 Hct 39.4 MCV 91.8 MCH 29.6 MCHC 32.2 RDW 13.6 Plt Count 263 MPV 11.4 H Sodium 134 L Potassium 3.4 Chloride 100 Carbon Dioxide 28 Anion Gap 6 BUN 5 L Creatinine 0.60 L Estim Creat Clear Calc 118 Estimated GFR > 60 Glucose 103 Calcium 8.3 L Post-procedural complaints: none Patient Feedback: Patient satisfied with anesthetic care.
[2023-12-19 14:34] VITALS: BP 117/58; PULSE 100; RESP 17; TEMP 36.6; O2SAT 97
[2023-12-19 15:34] VITALS: BP 107/62; PULSE 108; RESP 16; TEMP 36.7; O2SAT 97
[2023-12-19 19:34] VITALS: BP 114/48; PULSE 102; RESP 18; TEMP 36.4; O2SAT 94
[2023-12-19] MEDS: LORazepam (*CRX) 1 MG TABLET PO (21:01)
[2023-12-20] MEDS: LACTATED RINGERS 1,000 ML 100 ML IV CONT (03:29)
[2023-12-20] MEDS: oxyCODONE HCL (*CRX) 5 MG TAB IR PO (03:54)
[2023-12-20 05:39] LABS: Hematocrit 34.9 % (37.0-47.0); Hemoglobin 11.6 g/dL (12.0-15.0); Mean Corpuscular HGB Conc 33.2 g/dl (32-36); Mean Corpuscular Hemoglobin 30.4 pg (26-34); Mean Corpuscular Volume 91.6 fl (80-100); Mean Platelet Volume 11.5 fl (7.4-10.4); Platelet Count Result 223 k/mm3 (150-375); Red Blood Count 3.81 M/mm3 (4.2-5.4)
[2023-12-20] MEDS: ACETAMINOPHEN 325 MG TABLET 650 MG PO ×4 (05:41→23:21)
[2023-12-20 05:55] LABS: Anion Gap 5 mmol/L (4-12); Blood Urea Nitrogen 5 mg/dL (7-17); Calcium 8.6 mg/dL (8.4-10.2); Carbon Dioxide 28 mmol/L (22-30); Chloride 102 mmol/L (98-107); Estimated CRCL calculation 138 ml/min; Estimated Glomerular Filt Rate > 60; Glucose 102 mg/dL (65-110); Potassium 3.5 mmol/L (3.4-5.0); Sodium 135 mmol/L (137-145)
[2023-12-20 06:26] VITALS: BP 137/83; PULSE 110; RESP 20; TEMP 37.4; O2SAT 95
[2023-12-20 08:59] VITALS: RESP 20; O2SAT 95
[2023-12-20] MEDS: diazePAM (*CRX) 5 MG TABLET PO ×3 (08:59→17:13)
[2023-12-20] MEDS: oxyCODONE HCL (*CRX) 5 MG TAB IR 10 MG PO ×3 (08:59→20:18)
[2023-12-20] MEDS: ENOXAPARIN 40 MG/0.4 ML SYRINGE SUB-Q (08:59)
[2023-12-20] MEDS: ONDANSETRON INJ 4 MG/2 ML VIAL IV PUSH (10:56)
[2023-12-20] MEDS: HYDROmorphone HCL INJ (*CRX) 1 MG/ML SYR IV PUSH ×2 (11:02→23:42)
--- NOTE | 2023-12-20 11:11 | PM.PNGS ---
Progress Note: A&P Assessment and Plan (1) Diverticulitis of large intestine with perforation without abscess or bleeding: Code(s): K57.20 - Diverticulitis of large intestine with perforation and abscess without bleeding Status: Acute Assessment and Plan: Continue clear liquids today. Await return of bowel function. Will decrease IV fluids. Increase activity as tolerated. (2) Colostomy status: Code(s): Z93.3 - Colostomy status Status: Acute Subjective Subjective Date/Time Seen: 12/20/23 11:11 Post Op day: 2 Patient reports: pain is less, no flatus and no bowel movement Interval history: Up ambulating in halls. Still no flatus or BM. Nausea at times but doesn't feel bloated. Tolerating clears. Exam GI: Inspection: incision (intact with sherrie) GI Palp: Yes Soft to palpation and Yes Tenderness to palpation present (GI) (incisional) Auscultation: Hypoactive bowel sounds present Objective Data Vital Signs Vital Signs: Vital Signs - 24 hr 12/19/23 14:34 12/19/23 15:34 12/19/23 19:34 Temperature 97.9 F 98.0 F 97.5 F L Pulse Rate 100 108 H 102 H Respiratory Rate 17 16 18 Blood Pressure 117/58 L 107/62 114/48 L Pulse Oximetry 97 97 94 Oxygen Delivery 12/19/23 20:00 12/20/23 06:26 12/20/23 08:59 Temperature 99.3 F Pulse Rate 110 H Respiratory Rate 20 20 Blood Pressure 137/83 Pulse Oximetry 95 95 Oxygen Delivery Room Air Room Air Intake/Output Intake/Output: Intake & Output 12/17/23 12/18/23 12/19/23 12/20/23 23:59 23:59 23:59 23:59 Intake Total 500 3546.7 1540 Output Total 1575 950 Balance 500 1971.7 590 Meds/Results Medications: Active Medications Generic Name Dose Route Start Last Admin Trade Name Freq PRN Reason Stop Dose Admin Acetaminophen 650 mg 12/18/23 18:00 12/20/23 05:41 Acetaminophen 325 Mg Tablet PO 650 mg Q6HR MARY Administration Diazepam 5 mg 12/19/23 13:00 12/20/23 08:59 Diazepam (*Crx) 5 Mg Tablet PO 5 mg TID MARY Administration Enoxaparin Sodium 40 mg 12/19/23:00 12/20/23 08:59 Enoxaparin 40 Mg/0.4 Ml Syringe SUB-Q 40 mg DAILY MARY Administration Hydromorphone HCl 1 mg 12/18/23 17:49 12/20/23 11:02 Hydromorphone Hcl Inj (*Crx) 1 Mg/Ml Syr IV PUSH 1 mg Q2H PRN Administration Breakthrough Pain Rated 7-10 or NPO Hydromorphone HCl 0.5 mg 12/18/23 17:49 Hydromorphone Hcl Inj (*Crx) 1 Mg/Ml Syr IV PUSH Q2H PRN Breakthrough Pain Rated 4-6 or NPO Lactated Ringer's 1,000 mls @ 100 mls/hr 12/18/23 17:49 12/20/23 03:29 Lr - Lactated Ringers Iv IV CONT 100 mls/hr .Q10H MARY Administration Latanoprost 1 drop 12/18/23 21:00 12/19/23 20:37 Latanoprost 0.005% Op Soln 2.5 Ml Btl EACH EYE Not Given HS MARY Naloxone HCl 0.1 mg 12/18/23 17:49 Naloxone Hcl 0.4 Mg/Ml Vial IV PUSH Q2M PRN Opiate Reversal Ondansetron HCl 4 mg 12/18/23 17:49 12/20/23 10:56 Ondansetron Inj 4 Mg/2 Ml Vial IV PUSH 4 mg Q4H PRN Administration Nausea And Vomiting Oxycodone HCl 5 mg 12/18/23 17:49 12/20/23 03:54 Oxycodone Hcl (*Crx) 5 Mg Tab Ir PO 5 mg Q4H PRN Administration Pain Rated 4-6 Oxycodone HCl 10 mg 12/18/23 17:49 12/20/23 08:59 Oxycodone Hcl (*Crx) 5 Mg Tab Ir PO 10 mg Q4H PRN Administration Pain Rated 7-10 Sumatriptan Succinate 25 mg 12/18/23 17:49 Sumatriptan Succinate 25 Mg Tablet PO DAILY PRN Migraine Headache Labs Labs: Laboratory Results - last 24 hr 12/20/23 05:13 WBC 10.0 RBC 3.81 L Hgb 11.6 L Hct 34.9 L MCV 91.6 MCH 30.4 MCHC 33.2 RDW 14.0 Plt Count 223 MPV 11.5 H Sodium 135 L Potassium 3.5 Chloride 102 Carbon Dioxide 28 Anion Gap 5 BUN 5 L Creatinine 0.50 L Estim Creat Clear Calc 138 Estimated GFR > 60 Glucose 102 Calcium 8.6
[2023-12-20 14:36] VITALS: BP 133/72; PULSE 110; RESP 18; TEMP 36.9; O2SAT 95
[2023-12-20] MEDS: LACTATED RINGERS 1,000 ML 50 ML IV CONT (15:09)
[2023-12-20 20:02] VITALS: BP 120/60; PULSE 101; RESP 20; TEMP 36.3; O2SAT 94
[2023-12-20 20:10] VITALS: PULSE 101; RESP 20; O2SAT 94
[2023-12-20 21:53] VITALS: BP 123/47; PULSE 99; RESP 20; TEMP 36.4; O2SAT 90
[2023-12-21] MEDS: oxyCODONE HCL (*CRX) 5 MG TAB IR 10 MG PO ×5 (00:31→20:50)
[2023-12-21] MEDS: ACETAMINOPHEN 325 MG TABLET 650 MG PO ×4 (05:03→23:34)
[2023-12-21 05:21] LABS: Hematocrit 32.6 % (37.0-47.0); Hemoglobin 10.4 g/dL (12.0-15.0); Mean Corpuscular HGB Conc 31.9 g/dl (32-36); Mean Corpuscular Hemoglobin 29.5 pg (26-34); Mean Corpuscular Volume 92.4 fl (80-100); Platelet Count Result 222 k/mm3 (150-375); Red Blood Count 3.53 M/mm3 (4.2-5.4); Red Cell Distribution Width 13.8 % (11.5-14.5); White Blood Count 7.7 K/mm3 (4.5-10.0)
[2023-12-21 05:36] LABS: Anion Gap 7 mmol/L (4-12); Blood Urea Nitrogen 4 mg/dL (7-17); Calcium 8.2 mg/dL (8.4-10.2); Carbon Dioxide 27 mmol/L (22-30); Chloride 100 mmol/L (98-107); Estimated CRCL calculation 166 ml/min; Estimated Glomerular Filt Rate > 60; Glucose 89 mg/dL (65-110); Potassium 3.6 mmol/L (3.4-5.0); Sodium 134 mmol/L (137-145)
[2023-12-21 06:00] VITALS: BP 120/65; PULSE 110; RESP 18; TEMP 36.6; O2SAT 91
[2023-12-21] MEDS: oxyCODONE HCL (*CRX) 5 MG TAB IR PO (08:25)
[2023-12-21] MEDS: diazePAM (*CRX) 5 MG TABLET PO ×3 (08:25→17:03)
[2023-12-21] MEDS: ENOXAPARIN 40 MG/0.4 ML SYRINGE SUB-Q (08:25)
[2023-12-21] MEDS: ONDANSETRON INJ 4 MG/2 ML VIAL IV PUSH (10:55)
[2023-12-21] MEDS: LACTATED RINGERS 1,000 ML 50 ML IV CONT (10:55)
--- NOTE | 2023-12-21 13:35 | WPDPN ---
Progress Note: A&P Assessment and Plan (1) Colostomy status: Code(s): Z93.3 - Colostomy status Status: Acute Assessment and Plan: Patient continues to recover from her colostomy takedown. Her bowel function has returned. We will go ahead advance her diet to full liquids now hopefully could advanced to solid food tomorrow. Will keep giving her some Ensure supplements. She can go ahead and shower she wishes. Subjective Date/time seen: 12/21/23 13:35 Interval history: Patient feels she is not as energetic today. She is able to get up out of bed and sit in a chair. Has not been walking the hallways much today. No nausea or vomiting. Did have a bowel movement last evening. Tolerating clear liquids. Blood count still normal. Exam GI: Other: Abdomen is soft and nondistended. Incisions are intact and dry. Yazmin are in place. No redness. Objective Data Vital Signs Vital Signs: Vital Signs - 24 hr 12/20/23 14:36 12/20/23 20:02 12/20/23 20:10 Temperature 36.9 C 36.3 C L Pulse Rate 110 H 101 H 101 H Respiratory Rate 18 20 20 Blood Pressure 133/72 120/60 Pulse Oximetry 95 94 94 Oxygen Delivery Room Air 12/20/23 21:53 12/21/23 06:00 12/21/23 08:25 Temperature 36.4 C 36.6 C Pulse Rate 99 110 H Respiratory Rate 20 18 Blood Pressure 123/47 L 120/65 Pulse Oximetry 90 91 Oxygen Delivery Room Air Intake/Output Intake/Output: Intake & Output 12/18/23 12/19/23 12/20/23 12/21/23 23:59 23:59 23:59 23:59 Intake Total 500 3546.7 3601.7 2008.3 Output Total 1575 1950 900 Balance 500 1971.7 1651.7 1108.3 Meds/Results Medications: Active Medications Generic Name Dose Route Start Last Admin Trade Name Freq PRN Reason Stop Dose Admin Acetaminophen 650 mg 12/18/23 18:00 12/21/23 12:09 Acetaminophen 325 Mg Tablet PO 650 mg Q6HR MARY Administration Diazepam 5 mg 12/19/23 13:00 12/21/23 12:09 Diazepam (*Crx) 5 Mg Tablet PO 5 mg TID MARY Administration Enoxaparin Sodium 40 mg 12/19/23 09:00 12/21/23 08:25 Enoxaparin 40 Mg/0.4 Ml Syringe SUB-Q 40 mg DAILY MARY Administration Hydromorphone HCl 1 mg 12/18/23 17:49 12/20/23 23:42 Hydromorphone Hcl Inj (*Crx) 1 Mg/Ml Syr IV PUSH 1 mg Q2H PRN Administration Breakthrough Pain Rated 7-10 or NPO Hydromorphone HCl 0.5 mg 12/18/23 17:49 Hydromorphone Hcl Inj (*Crx) 1 Mg/Ml Syr IV PUSH Q2H PRN Breakthrough Pain Rated 4-6 or NPO Lactated Ringer's 1,000 mls @ 50 mls/hr 12/18/23 17:49 12/21/23 10:55 Lr - Lactated Ringers Iv IV CONT 50 mls/hr .Q20H MARY Administration Latanoprost 1 drop 12/18/23 21:00 12/20/23 20:14 Latanoprost 0.005% Op Soln 2.5 Ml Btl EACH EYE Not Given HS MARY Naloxone HCl 0.1 mg 12/18/23 17:49 Naloxone Hcl 0.4 Mg/Ml Vial IV PUSH Q2M PRN Opiate Reversal Ondansetron HCl 4 mg 12/18/23 17:49 12/21/23 10:55 Ondansetron Inj 4 Mg/2 Ml Vial IV PUSH 4 mg Q4H PRN Administration Nausea And Vomiting Oxycodone HCl 5 mg 12/18/23 17:49 12/21/23 08:25 Oxycodone Hcl (*Crx) 5 Mg Tab Ir PO 5 mg Q4H PRN Administration Pain Rated 4-6 Oxycodone HCl 10 mg 12/18/23 17:49 12/21/23 10:50 Oxycodone Hcl (*Crx) 5 Mg Tab Ir PO 10 mg Q4H PRN Administration Pain Rated 7-10 Sumatriptan Succinate 25 mg 12/18/23 17:49 Sumatriptan Succinate 25 Mg Tablet PO DAILY PRN Migraine Headache Labs Labs: Laboratory Results - last 24 hr 12/21/23 05:00 WBC 7.7 RBC 3.53 L Hgb 10.4 L Hct 32.6 L MCV 92.4 MCH 29.5 MCHC 31.9 L RDW 13.8 Plt Count 222 MPV 11.0 H Sodium 134 L Potassium 3.6 Chloride 100 Carbon Dioxide 27 Anion Gap 7 BUN 4 L Creatinine 0.40 L Estim Creat Clear Calc 166 Estimated GFR > 60 Glucose 89 Calcium 8.2 L
[2023-12-21 14:00] VITALS: PULSE 100; RESP 20; TEMP 36.6; O2SAT 98
[2023-12-21] MEDS: HYDROmorphone HCL INJ (*CRX) 1 MG/ML SYR IV PUSH (17:59)
[2023-12-21 22:00] VITALS: BP 117/60; PULSE 95; RESP 18; TEMP 36.1; O2SAT 96
[2023-12-22] MEDS: oxyCODONE HCL (*CRX) 5 MG TAB IR 10 MG PO ×2 (02:41→07:58)
[2023-12-22 05:12] LABS: Hematocrit 30.8 % (37.0-47.0); Hemoglobin 10.4 g/dL (12.0-15.0); Mean Corpuscular HGB Conc 33.8 g/dl (32-36); Mean Corpuscular Hemoglobin 31.1 pg (26-34); Mean Corpuscular Volume 92.2 fl (80-100); Mean Platelet Volume 10.7 fl (7.4-10.4); Platelet Count Result 230 k/mm3 (150-375); Red Blood Count 3.34 M/mm3 (4.2-5.4); Red Cell Distribution Width 13.7 % (11.5-14.5); White Blood Count 6.1 K/mm3 (4.5-10.0)
[2023-12-22 05:23] LABS: Anion Gap 5 mmol/L (4-12); Blood Urea Nitrogen 4 mg/dL (7-17); Calcium 8.1 mg/dL (8.4-10.2); Carbon Dioxide 28 mmol/L (22-30); Chloride 101 mmol/L (98-107); Estimated CRCL calculation 167 ml/min; Estimated Glomerular Filt Rate > 60; Glucose 82 mg/dL (65-110); Potassium 3.4 mmol/L (3.4-5.0); Sodium 134 mmol/L (137-145)
[2023-12-22] MEDS: ACETAMINOPHEN 325 MG TABLET 650 MG PO ×3 (05:37→16:40)
[2023-12-22 06:00] VITALS: BP 124/73; PULSE 97; RESP 18; TEMP 36.1; O2SAT 97
[2023-12-22] MEDS: diazePAM (*CRX) 5 MG TABLET PO ×3 (07:57→16:39)
[2023-12-22] MEDS: ENOXAPARIN 40 MG/0.4 ML SYRINGE SUB-Q (07:57)
[2023-12-22] MEDS: LACTATED RINGERS 1,000 ML 50 ML IV CONT (07:57)
--- NOTE | 2023-12-22 10:37 | WPDPN ---
Progress Note: A&P Assessment and Plan (1) Colostomy status: Code(s): Z93.3 - Colostomy status Status: Acute Assessment and Plan: Patient doing well after colostomy takedown. Started to have bowel movements now. Go ahead advance her to a low-fiber diet. Go ahead Hep-Lock her IV fluids. Continue ambulating to chair and in the hallways. Hopefully can be discharged home tomorrow. Dr. Benton will return tomorrow to decide on discharge. Subjective Date/time seen: 12/22/23 10:37 Interval history: Patient is doing better this morning. More energy. She feels like she can walk in hallways better today. She is having bowel movements which are semi formed and not diarrhea. Pain is well controlled on current pain management regimen. She wants to have some solid food. She took a shower yesterday without any difficulty. Exam GI: Other: Abdomen is soft and nondistended. Incisions are healing well without any redness or drainage. Yazmin are in place. Objective Data Vital Signs Vital Signs: Vital Signs - 24 hr 12/21/23 14:00 12/21/23 22:00 12/21/23 20:50 Temperature 36.6 C 36.1 C L Pulse Rate 100 95 Respiratory Rate 20 18 Blood Pressure 117/60 Pulse Oximetry 98 96 Oxygen Delivery Room Air 12/22/23 06:00 12/22/23 07:55 Temperature 36.1 C L Pulse Rate 97 Respiratory Rate 18 Blood Pressure 124/73 Pulse Oximetry 97 Oxygen Delivery Room Air Intake/Output Intake/Output: Intake & Output 12/19/23 12/20/23 12/21/23 12/22/23 23:59 23:59 23:59 23:59 Intake Total 3546.7 3601.7 2248.3 1974 Output Total 1575 1950 1300 Balance 1971.7 1651.7 948.3 1974 Meds/Results Medications: Active Medications Generic Name Dose Route Start Last Admin Trade Name Freq PRN Reason Stop Dose Admin Acetaminophen 650 mg 12/18/23 18:00 12/22/23 05:37 Acetaminophen 325 Mg Tablet PO 650 mg Q6HR MARY Administration Diazepam 5 mg 12/19/23 13:00 12/22/23 07:57 Diazepam (*Crx) 5 Mg Tablet PO 5 mg TID MARY Administration Enoxaparin Sodium 40 mg 12/19/23 09:00 12/22/23 07:57 Enoxaparin 40 Mg/0.4 Ml Syringe SUB-Q 40 mg DAILY MARY Administration Hydromorphone HCl 1 mg 12/18/23 17:49 12/21/23 17:59 Hydromorphone Hcl Inj (*Crx) 1 Mg/Ml Syr IV PUSH 1 mg Q2H PRN Administration Breakthrough Pain Rated 7-10 or NPO Hydromorphone HCl 0.5 mg 12/18/23 17:49 Hydromorphone Hcl Inj (*Crx) 1 Mg/Ml Syr IV PUSH Q2H PRN Breakthrough Pain Rated 4-6 or NPO Latanoprost 1 drop 12/18/23 21:00 12/21/23 20:53 Latanoprost 0.005% Op Soln 2.5 Ml Btl EACH EYE Not Given HS MARY Naloxone HCl 0.1 mg 12/18/23 17:49 Naloxone Hcl 0.4 Mg/Ml Vial IV PUSH Q2M PRN Opiate Reversal Ondansetron HCl 4 mg 12/18/23 17:49 12/21/23 10:55 Ondansetron Inj 4 Mg/2 Ml Vial IV PUSH 4 mg Q4H PRN Administration Nausea And Vomiting Oxycodone HCl 5 mg 12/18/23 17:49 12/21/23 08:25 Oxycodone Hcl (*Crx) 5 Mg Tab Ir PO 5 mg Q4H PRN Administration Pain Rated 4-6 Oxycodone HCl 10 mg 12/18/23 17:49 12/22/23 07:58 Oxycodone Hcl (*Crx) 5 Mg Tab Ir PO 10 mg Q4H PRN Administration Pain Rated 7-10 Sumatriptan Succinate 25 mg 12/18/23 17:49 Sumatriptan Succinate 25 Mg Tablet PO DAILY PRN Migraine Headache Labs Labs: Laboratory Results - last 24 hr 12/22/23 04:49 WBC 6.1 RBC 3.34 L Hgb 10.4 L Hct 30.8 L MCV 92.2 MCH 31.1 D MCHC 33.8 RDW 13.7 Plt Count 230 MPV 10.7 H Sodium 134 L Potassium 3.4 Chloride 101 Carbon Dioxide 28 Anion Gap 5 BUN 4 L Creatinine 0.40 L Estim Creat Clear Calc 167 Estimated GFR > 60 Glucose 82 Calcium 8.1 L
[2023-12-22] MEDS: HYDROmorphone HCL INJ (*CRX) 1 MG/ML SYR IV PUSH ×3 (11:07→21:09)
[2023-12-22] MEDS: oxyCODONE HCL (*CRX) 5 MG TAB IR PO ×3 (12:34→21:08)
[2023-12-22 14:00] VITALS: BP 127/76; PULSE 96; RESP 16; TEMP 36.2; O2SAT 98
[2023-12-22 18:25] LABS: Add Urine Microscopic? YES; Appearance Urine Cloudy (Clear); Bacteria Urine None Seen /hpf; Bilirubin Urine 1+ (Negative); Blood Urine 3+ (Negative); Color Urine Dark Yellow (Yellow); Glucose Urine UA Negative (Negative); Ketones Urine Trace mg/dL (Negative); Leukocyte Esterase Ur Trace LEU/UL (Negative); Need Manual Microscopic Reviewed; Nitrate Urine Negative (Negative); Non Pathogenic Casts 0-2; Protein Urine Trace mg/dL (Negative); RBC Urine >100 /hpf (0-2); Specific Grav Ur 1.027 (1.001-1.035); Squamous Epithelial Cell Urine Few /hpf (Few); WBC Urine 0-5 /hpf (0-3)
[2023-12-22 20:22] VITALS: BP 123/80; PULSE 80; RESP 20; TEMP 36.5; O2SAT 98
[2023-12-22 21:48] VITALS: BP 132/73; PULSE 89; RESP 18; TEMP 36.6; O2SAT 97
[2023-12-23] MEDS: ACETAMINOPHEN 325 MG TABLET 650 MG PO ×4 (00:05→17:49)
[2023-12-23 00:09] VITALS: BP 119/55; PULSE 86; RESP 18; TEMP 36.7; O2SAT 98
[2023-12-23] MEDS: oxyCODONE HCL (*CRX) 5 MG TAB IR 10 MG PO ×4 (03:38→20:28)
[2023-12-23] MEDS: HYDROmorphone HCL INJ (*CRX) 1 MG/ML SYR IV PUSH ×3 (03:39→14:00)
[2023-12-23 06:13] VITALS: BP 118/65; PULSE 88; RESP 18; TEMP 36.2; O2SAT 91
[2023-12-23] MEDS: diazePAM (*CRX) 5 MG TABLET PO ×3 (10:04→17:50)
[2023-12-23] MEDS: ENOXAPARIN 40 MG/0.4 ML SYRINGE SUB-Q (10:04)
[2023-12-23 14:00] VITALS: BP 119/57; PULSE 85; RESP 17; TEMP 36.4; O2SAT 99
--- NOTE | 2023-12-23 14:42 | PM.PNGS ---
Progress Note: A&P Assessment and Plan (1) Colostomy status: Code(s): Z93.3 - Colostomy status Status: Acute Assessment and Plan: Continues to slowly improve. Tolerating a low fiber diet. Will start Miralax today. Still requiring IV analgesics for pain. Encouraged sticking to oral pain medication. Will add Ibuprofen as needed. Increase activity as tolerated Possibly discharge home tomorrow if pain is better controlled and she continues to improve. Will repeat labs tomorrow and reassess. (2) Vaginal pruritus: Code(s): N89.8 - Other specified noninflammatory disorders of vagina Status: Acute Assessment and Plan: UA negative for UTI. Symptoms more c/w vaginal yeast infection. Will give one dose of Diflucan. Plan I have discussed the patient's case and plan of care with Dr. Sanchez. Subjective Subjective Date/Time Seen: 12/23/23 14:42 Patient reports: no new complaints, feels better, tolerating a regular diet (low fiber), flatus, bowel movement (last BM yesterday) and afebrile Interval history: Patient had complaints of urinary urgency and was concerned with stool contamination from liquid stool the first few days after surgery. UA yesterday negative for UTI. Blood noted in urine, but patient reports she is menstruating. With further questioning, she reports external vaginal itching and mild swelling. She has had a yeast infection in the past and feels this is similar. She is still taking IV dilaudid and oxycodone. She reports having pain at the larger midline incision and her ostomy incision. No nausea or vomiting. Bowels have been moving up until today, she is only passing flatus today. Tolerating ambulating and activity well. Exam Const: General: comfortable and no acute distress Orientation/consciousness: patient oriented x3 GI: Inspection: non-distended and incision (incisions dry and sherrie intact, no erytema) GI Palp: Yes Soft to palpation, Yes Tenderness to palpation present (GI) (expected incisional tenderness) and No Guarding due to palpation present (GI) Auscultation: normal bowel sounds Objective Data Vital Signs Vital Signs: Vital Signs - 24 hr 12/22/23 20:22 12/22/23 21:48 12/23/23 00:09 Temperature 97.7 F 97.9 F 98.0 F Pulse Rate 80 89 86 Respiratory Rate 20 18 18 Blood Pressure 123/80 132/73 119/55 L Pulse Oximetry 98 97 98 Oxygen Delivery 12/22/23 21:10 12/23/23 06:13 Temperature 97.1 F L Pulse Rate 88 Respiratory Rate 18 Blood Pressure 118/65 Pulse Oximetry 91 Oxygen Delivery Room Air Intake/Output Intake/Output: Intake & Output 12/20/23 12/21/23 12/22/23 12/23/23 23:59 23:59 23:59 23:59 Intake Total 3601.7 2248.3 2595 540 Output Total 1950 1300 Balance 1651.7 948.3 2595 540 Meds/Results Medications: Active Medications Generic Name Dose Route Start Last Admin Trade Name Freq PRN Reason Stop Dose Admin Acetaminophen 650 mg 12/18/23 18:00 12/23/23 13:06 Acetaminophen 325 Mg Tablet PO 650 mg Q6HR MARY Administration Diazepam 5 mg 12/19/23 13:00 12/23/23 13:06 Diazepam (*Crx) 5 Mg Tablet PO 5 mg TID MARY Administration Enoxaparin Sodium 40 mg 12/19/23 09:00 12/23/23 10:04 Enoxaparin 40 Mg/0.4 Ml Syringe SUB-Q 40 mg DAILY MARY Administration Hydromorphone HCl 1 mg 12/18/23 17:49 12/23/23 14:00 Hydromorphone Hcl Inj (*Crx) 1 Mg/Ml Syr IV PUSH 1 mg Q2H PRN Administration Breakthrough Pain Rated 7-10 or NPO Hydromorphone HCl 0.5 mg 12/18/23 17:49 Hydromorphone Hcl Inj (*Crx) 1 Mg/Ml Syr IV PUSH Q2H PRN Breakthrough Pain Rated 4-6 or NPO Latanoprost 1 drop 12/18/23 21:00 12/22/23 23:32 Latanoprost 0.005% Op Soln 2.5 Ml Btl EACH EYE Not Given HS MARY Naloxone HCl 0.1 mg 12/18/23 17:49 Naloxone Hcl 0.4 Mg/Ml Vial IV PUSH Q2M PRN Opiate Reversal Ondansetron HCl 4 mg 12/18/23 17:49 12/21/23 10:55 Ondansetron Inj 4 Mg/2 Ml Vial IV
[2023-12-23] MEDS: FLUCONAZOLE 150 MG TABLET PO (16:32)
[2023-12-23 21:49] VITALS: BP 118/56; PULSE 93; RESP 18; TEMP 36.7; O2SAT 97
[2023-12-24] MEDS: ACETAMINOPHEN 325 MG TABLET 650 MG PO ×3 (00:15→12:06)
[2023-12-24] MEDS: oxyCODONE HCL (*CRX) 5 MG TAB IR 10 MG PO (05:15)
[2023-12-24 06:00] VITALS: BP 110/59; PULSE 82; RESP 20; TEMP 36.5; O2SAT 98
[2023-12-24 06:00] LABS: Hematocrit 30.4 % (37.0-47.0); Mean Corpuscular HGB Conc 32.9 g/dl (32-36); Mean Corpuscular Hemoglobin 30.4 pg (26-34); Mean Corpuscular Volume 92.4 fl (80-100); Mean Platelet Volume 9.9 fl (7.4-10.4); Platelet Count Result 255 k/mm3 (150-375); Red Blood Count 3.29 M/mm3 (4.2-5.4); Red Cell Distribution Width 14.1 % (11.5-14.5); White Blood Count 5.7 K/mm3 (4.5-10.0)
[2023-12-24 06:16] LABS: Anion Gap 4 mmol/L (4-12); Blood Urea Nitrogen 8 mg/dL (7-17); Calcium 8.7 mg/dL (8.4-10.2); Carbon Dioxide 31 mmol/L (22-30); Chloride 102 mmol/L (98-107); Estimated CRCL calculation 137 ml/min; Estimated Glomerular Filt Rate > 60; Glucose 103 mg/dL (65-110); Potassium 3.5 mmol/L (3.4-5.0); Sodium 137 mmol/L (137-145)
[2023-12-24] MEDS: diazePAM (*CRX) 5 MG TABLET PO ×2 (08:03→12:06)
[2023-12-24] MEDS: polyethylene glycoL 3350 17 GM POWD.PACK PO (08:03)
[2023-12-24] MEDS: IBUPROFEN 600 MG TABLET PO (08:17)
[2023-12-24] MEDS: oxyCODONE HCL (*CRX) 5 MG TAB IR PO ×2 (10:09→14:16)
--- NOTE | 2023-12-24 13:53 | PM.DS ---
DS: Admitting Diagnosis Discharge Date 12/24/23 Admitting Diagnosis Perforated diverticulitis of the large intestine Colostomy status DS: Discharge Diagnosis Discharge Diagnosis (1) Diverticulitis of large intestine with perforation without abscess or bleeding: Code(s): K57.20 - Diverticulitis of large intestine with perforation and abscess without bleeding Status: Acute Assessment and Plan: Underwent Attempted robotic assisted laparoscopic takedown of colostomy, Open takedown of colostomy with end-to-end hand-sewn colorectal anastomosis, Extensive adhesiolysis, Open incidental appendectomy on 12/18/[address] Benton. (2) Colostomy status: Code(s): Z93.3 - Colostomy status Status: Acute (3) Vaginal pruritus: Code(s): N89.8 - Other specified noninflammatory disorders of vagina Status: Acute Assessment and Plan: Vaginal pruritus and urinary urgency started on postop day 4. UA negative for UTI. Treated with Diflucan. Topical therapy ordered on discharge for symptomatic treatment. F/u with Gynecology if symptoms persist. DS: Summary Hospital Course Reason for hospitalization: This is a 43-year-old woman who presented for colostomy takedown. She has a history of perforated diverticulitis and underwent sigmoid colectomy with end descending colostomy 2 months ago. She she was healed from the previous surgery and decided to proceed with colostomy takedown. Hospital Course: Patient underwent attempted robotic assisted laparoscopic takedown of colostomy, open takedown of colostomy with end-to-end hand-sewn colorectal anastomosis, extensive adhesiolysis, open incidental appendectomy on 12/18/[address] Benton. The first few days postoperatively, the patient was mostly dealing with abdominal pain, which was expected considering the long difficult colostomy takedown. She was initially on clear liquids and bowel function returned by postop day 3. Her diet was slowly advanced. Activity was increased as tolerated. She was transition to oral analgesics for pain control. Her incision looked good postoperatively without any signs of a wound infection. Serial labs were monitored and remained stable. She is now tolerating a diet and tolerating activity. Her pain is well controlled with oral analgesics. She is stable for discharge today. All discharge instructions were discussed with the patient in detail and she will follow up with Dr. Benton as scheduled for staple removal. Status at Discharge Functional status at discharge: independent ambulation Overall status at discharge: patient is progressing back to baseline Time Spent with Patient Time attestation: Total time spent providing and/or coordinating discharge services: Exam Const: General: comfortable and no acute distress Orientation/consciousness: patient oriented x3 GI: Inspection: non-distended and incision (incisions dry and sherrie intact, no erytema) GI Palp: Yes Soft to palpation, Yes Tenderness to palpation present (GI) (expected incisional tenderness) and No Guarding due to palpation present (GI) Auscultation: normal bowel sounds DS: Data Data Completed and Pending Completed studies during hospitalization: PATHOLOGY Appendix, appendectomy: - Benign appendix with serosal adhesions Labs on day of discharge: Labs from last 24 hours 12/24/23 05:41 WBC 5.7 RBC 3.29 L Hgb 10.0 L Hct 30.4 L MCV 92.4 MCH 30.4 MCHC 32.9 RDW 14.1 Plt Count 255 MPV 9.9 Sodium 137 Potassium 3.5 Chloride 102 Carbon Dioxide 31 H Anion Gap 4 BUN 8 Creatinine 0.50 L Estim Creat Clear Calc 137 Estimated GFR > 60 Glucose 103 Calcium 8.7 Procedures/Treatments: Procedures Operation Date: 12/18/23 09:30 Actual Procedure Side Surgeon p Attempted Laparoscopic Assisted Colostomy Takedown, Davinci Assisted, Open Colostomy Takedown, Adhesiolysis, Open Appendectomy Not Applicable DO Hieu Patrick
[2023-12-24 14:00] VITALS: BP 119/58; PULSE 83; RESP 14; TEMP 36.6; O2SAT 99
== END 2023-12-24 14:30 | disposition home or self-care (01) | DRG 337 ==
LOC: ANH2MED 18:18
PROVIDERS: Surgery; Admitting Provider Surgery; PCP Nurse Practitioner Family; Visit Provider Nurse Practitioner Family
PROC: 0DBE4ZZ Excision of Large Intestine, Percutaneous Endoscopic Approach (ICD-10-PCS; CPT 44227; principal; 2023-12-18 09:30)
DX: Z43.3 Encounter for attention to colostomy (principal); K66.0 Peritoneal adhesions (postprocedural) (postinfection); N73.6 Female pelvic peritoneal adhesions (postinfective); N89.8 Other specified noninflammatory disorders of vagina; K21.9 Gastro-esophageal reflux disease without esophagitis; M54.50 Low back pain, unspecified; G89.29 Other chronic pain; F90.9 Attention-deficit hyperactivity disorder, unspecified type; F17.210 Nicotine dependence, cigarettes, uncomplicated; Z86.010 Personal history of colon polyps; Z53.31 Laparoscopic surgical procedure converted to open procedure
CPT/HCPCS: 36415; 80048; 81001; 85027; 88304; A9270; C1729; J0690; J1100; J1170; J1650; J1836; J1885; J2250; J2405; J2704; J3010; J7030; J7120

== ENCOUNTER 2024-02-13 12:33 | Outpatient (CLI) | payer OTHER, SELFPAY ==
--- NOTE | ~2024-02-13 | MM_ITS ---
EXAMINATION: MM screening kailyn BI w kalani HISTORY: Screening mammogram TECHNIQUE: Craniocaudal and mediolateral oblique 3-D tomosynthesis images were obtained and synthetic 2-D images were generated. CAD analysis was submitted and interpreted. COMPARISON: 08/21/2022, 06/17/2015 BREAST PARENCHYMAL COMPOSITION:Not Dense. There are scattered areas of fibroglandular density. FINDINGS: No suspicious mass, calcification, or architectural distortion are identified in either virgil ast to suggest malignancy. There has been no suspicious interval change. IMPRESSION: No mammographic evidence of malignancy. Recommend routine screening mammography in one year. BI-RADS Category 1: Negative Reviewed, dictated and finalized at location . [employer] [employer]
== END 2024-02-13 12:34 | disposition home or self-care (01) ==
PROVIDERS: PCP Nurse Practitioner Family; Visit Provider Nurse Practitioner Family
DX: Z12.31 Encounter for screening mammogram for malignant neoplasm of breast (principal)
CPT/HCPCS: 77063; 77067